=== PATIENT | male | born 1975 | race American Indian/Alaskan Native ===

== ENCOUNTER 2017-11-01 15:54 | Emergency (ER) | payer OTHER ==
[2017-11-01 16:27] VITALS: BP 152/93
[2017-11-01 21:40] LABS: Basophils # (Auto) 0.1 K/mm3 (0.0-0.1); Basophils % (Auto) 0.9 % (0.0-1.8); Eosinophils # (Auto) 0.2 K/mm3 (0.0-0.4); Eosinophils % (Auto) 2.4 % (0.0-4.3); Hematocrit 46.4 % (35.5-45.6); Hemoglobin 15.9 gm/dl (11.8-15.2); Lymphocytes # (Auto) 1.7 K/mm3 (1.2-5.4); Lymphocytes % (Auto) 23.3 % (13.4-35.0); Mean Corpuscular HGB Conc 34 % (32-34); Mean Corpuscular Hemoglobin 31 pg (28-32); Mean Corpuscular Volume 89 fl (84-94); Monocytes # (Auto) 0.6 K/mm3 (0.0-0.8); Monocytes % (Auto) 8.2 % (0.0-7.3); Platelet Count 223 K/mm3 (140-440); Red Cell Distribution Width 13.8 % (13.2-15.2)
[2017-11-01] MEDS ORDERED: TRIPLE ANTIBIOTIC TP ONE (22:05)
--- NOTE | 2017-11-01 22:07 | Emergency Department Report ---
- General Chief complaint: Wound/Laceration Stated complaint: OPEN SORE LT ARM Time Seen by Provider: 11/01/17 20:55 Source: patient Mode of arrival: Ambulatory Limitations: No Limitations - History of Present Illness Initial comments: This is a 42-year-old male nontoxic, well nourished in appearance, no acute signs of distress presents to the ED with c/o of left arm abrasion. Patient stated that he was discharged from [facility] yesterday and they used silk tape which caused him to have an abrasion. Patient also stated that he wants to make sure that "infection" is out of his body. Patient stated he was admitted with IV antibiotics and discharged with antibiotics but he does not know the name. Patient denies any fever, chills, nausea, vomiting, chest pain, shortness of breath, headache, stiff neck or numbness or tingling. Patient denies any abdominal pain. Patient denies any drug allergies besides adhesive tape. Past medical history includes [place], heart attack, hypothyroid and high cholesterol. MD complaint: other (abrasion) -: days(s) (1) Severity: mild Severity scale (0 -10): 3 Quality: aching Consistency: constant Improves with: none Worsens with: none Context: none Associated symptoms: denies other symptoms Treatments Prior to Arrival: none - Related Data Allergies Allergy/AdvReac Type Severity Reaction Status Date / Time adhesive tape Allergy Unknown Verified 11/01/17 16:28 Abscess Boil [facility] Chief Complaint: Wound/Laceration Stated Complaint: OPEN SORE LT ARM Time Seen by Provider: 11/01/17 20:55 Allergies/Adverse Reactions: Allergies Allergy/AdvReac Type Severity Reaction Status Date / Time adhesive tape Allergy Unknown Verified 11/01/17 16:28 ED Review of Systems ROS: Stated complaint: OPEN SORE LT ARM Other details as noted in HPI Constitutional: denies: chills, fever Eyes: denies: eye pain, eye discharge, vision change ENT: denies: ear pain, throat pain Respiratory: denies: cough, shortness of breath, wheezing Cardiovascular: denies: chest pain, palpitations Endocrine: no symptoms reported Gastrointestinal: denies: abdominal pain, nausea, diarrhea Genitourinary: denies: urgency, dysuria Musculoskeletal: denies: back pain, joint swelling, arthralgia Skin: denies: rash, lesions Neurological: denies: headache, weakness, paresthesias Psychiatric: denies: anxiety, depression Hematological/Lymphatic: denies: easy bleeding, easy bruising ED Past Medical Hx - Past Medical History Previous Medical History?: Yes Hx Hypertension: Yes Hx Heart Attack/AMI: Yes Hx Diabetes: No Additional medical history: hypothyroid, high cholesterol - Surgical History Past Surgical History?: Yes Additional Surgical History: CABG (triple), stent placement - Social History Smoking Status: Never Smoker Substance Use Type: None ED Physical Exam - General Limitations: No Limitations General appearance: alert, in no apparent distress - Head Head exam: Present: atraumatic, normocephalic - Eye Eye exam: Present: normal appearance Pupils: Present: normal accommodation - ENT ENT exam: Present: normal exam, mucous membranes moist - Neck Neck exam: Present: normal inspection, full ROM. Absent: tenderness, meningismus, lymphadenopathy - Respiratory Respiratory exam: Present: normal lung sounds bilaterally. Absent: respiratory distress, wheezes, rales, rhonchi, stridor, chest wall tenderness, accessory muscle use, decreased breath sounds, prolonged expiratory - Cardiovascular Cardiovascular Exam: Present: regular rate, normal rhythm, normal heart sounds. Absent: bradycardia, tachycardia, irregular rhythm, systolic murmur, diastolic murmur, rubs, gallop - GI/Abdominal GI/Abdominal exam: Present: soft, normal bowel sounds. Absent: distended, tenderness, guarding, rebound, rigid, diminished bowel sounds - Rectal Rectal exam: Present: deferred - Extremities Exam Extremities exam: Present: normal inspection, full ROM, tenderness, normal capillary refill, other (1 cm superficial abrasion to left antecubital area. No laceartion. No abscess or cellultits noted.). Absent: joint swelling - Back Exam Back exam: Present: normal inspection, full ROM - Neurological Exam Neurological exam: Present: alert, oriented X3, normal gait - Psychiatric Psychiatric exam: Present: normal affect, normal mood - Skin Skin exam: Present: warm, dry, intact, normal color. Absent: rash ED Course Vital Signs 11/01/17 16:22 Temperature 98.7 F Pulse Rate 72 Respiratory 18 Rate Blood Pressure 152/93 O2 Sat by Pulse 95 Oximetry - Reevaluation(s) Reevaluation #1: 11/01/17 22:13 Sinuses ED Medical Decision Making - Lab Data Result diagrams: 11/01/17 21:28 - Medical Decision Making This is a 42-year-old male that presents with an abrasion. Patient is stable and was examined by me. The abrasion has been applied triple antibiotic and a sterile dressing with Trish. Labs obtained. Vital signs are stable. Normal lactic acid. No white count. Patient was instructed to continue taking antibiotics as prescribed. Patient was referred to Follow-up with a primary care doctor in 3-5 days or if symptoms worsen and continue return to emergency room as soon as possible. At time of discharge, the patient does not seem toxic or ill in appearance. No acute signs of distress noted. Patient agrees to discharge treatment plan of care. No further questions noted by the patient. Critical care attestation.: If time is entered above; I have spent that time in minutes in the direct care of this critically ill patient, excluding procedure time. ED Disposition Clinical Impression: Abrasion Disposition: DC-01 TO HOME OR SELFCARE Is pt being admited?: No Does the pt Need Aspirin: No Condition: Stable Instructions: Abrasion (ED) Additional Instructions: Follow-up with a primary care doctor in 3-5 days or if symptoms worsen and continue return to emergency room as soon as possible. Continue taking antibiotics as prescribed to you during your previous hospital stay. Referrals: PRIMARY CARE, [Primary Care Provider] - 3-5 Days GEOVANNA LEE MD [Staff Physician] - 3-5 Days [facility] [Outside] - [facility] - [facility]-5 Days Forms: Work/School Release Form(ED)
[2017-11-01 22:09] LABS: BUN/Creatinine Ratio 11; Blood Urea Nitrogen 12 mg/dL (9-20); Calcium 9.4 mg/dL (8.4-10.2); Hemolysis Index 8
== END 2017-11-01 22:26 | disposition home or self-care (01) ==
LOC: ED 15:54
DX: S40.812A Abrasion of left upper arm, initial encounter (principal); I10 Essential (primary) hypertension; I25.2 Old myocardial infarction; E78.00 Pure hypercholesterolemia, unspecified; Z95.1 Presence of aortocoronary bypass graft; Z91.048 Other nonmedicinal substance allergy status; X58.XXXA Exposure to other specified factors, initial encounter; Y93.89 Activity, other specified; Y99.8 Other external cause status; Y92.89 Other specified places as the place of occurrence of the external cause
CPT/HCPCS: 36415; 80048; 82140; 85025; 99283; A6250

== ENCOUNTER 2018-10-30 21:10 | Inpatient (IN) | payer OTHER ==
[2018-10-30] MEDS ORDERED: ASPIRIN PO ONE (21:27)
--- NOTE | 2018-10-30 21:31 | Event Note ---
ED Screening Note Date of service: 10/30/18 Time: 21:26 ED Screening Note: This is a 43 y.o. M. that presents to the ER with chest pain and RLE swelling. Patient reports RLE swelling for 3 weeks. This initial assessment/diagnostic orders/clinical plan/treatment(s) is/are subject to change based on patients health status, clinical progression and re- assessment by fellow clinical providers in the ED. Further treatment and workup at subsequent clinical providers discretion. Patient/guardian urged not to elope from the ED as their condition may be serious if not clinically assessed and managed. Initial orders include: CXR, Labs, and EKG
--- NOTE | 2018-10-30 22:03 | XRay Report ---
CHEST 2 VIEWS INDICATION: Chest Pain. COMPARISON: 07/08/2012. FINDINGS: Support devices: None. Heart: Within normal limits. Suspicious previous median sternotomy. Lungs/Pleura: No acute air space or interstitial disease. No significant pleural effusion. IMPRESSION: No acute findings. Signer Name: Jin Mead MD Signed: 10/30/2018 9:58 PM Workstation Name: [email or web address]
[2018-10-30 22:45] LABS: Basophils # (Auto) 0.1 K/mm3 (0.0-0.1); Basophils % (Auto) 1.2 % (0.0-1.8); Eosinophils # (Auto) 0.2 K/mm3 (0.0-0.4); Eosinophils % (Auto) 3.3 % (0.0-4.3); Hematocrit 47.6 % (35.5-45.6); Hemoglobin 16.2 gm/dl (11.8-15.2); Lymphocytes # (Auto) 2.2 K/mm3 (1.2-5.4); Lymphocytes % (Auto) 38.1 % (13.4-35.0); Mean Corpuscular HGB Conc 34 % (32-34); Mean Corpuscular Volume 91 fl (84-94); Monocytes # (Auto) 0.6 K/mm3 (0.0-0.8); Monocytes % (Auto) 11.4 % (0.0-7.3); Platelet Count 167 K/mm3 (140-440); Red Blood Count 5.25 M/mm3 (3.65-5.03)
[2018-10-30 23:00] LABS: BUN/Creatinine Ratio 10; Blood Urea Nitrogen 12 mg/dL (9-20); Calcium 8.8 mg/dL (8.4-10.2); Hemolysis Index 14
--- NOTE | 2018-10-31 00:42 | Emergency Department Report ---
ED Chest Pain HPI - General Chief Complaint: Chest Pain Stated Complaint: CHEST PAIN/LEG SWELLING Time Seen by Provider: 10/30/18 21:26 Source: patient Mode of arrival: Ambulatory Limitations: No Limitations - History of Present Illness Initial Comments: 43-year-old male with a past history of obesity, hypertension, CAD with CABG 3 2009 and stent placement, elevated cholesterol, and hypothyroidism presents to the Hospital complains of right leg swelling 2 weeks and intermittent left- sided chest pain 3-4 days. Patient has swelling to his lower right leg the past 3 weeks. No trauma reported. Patient has a history of recurrent intermittent right leg swelling since receiving a CABG in 2009. This is the studies also associated with a cellulitis infection. Patient denies warmth, erythema, or fevers. He is concerned because the swelling has not improved in the last 3 weeks. He denies recent travel, history of PE/DVT, or no history of PAD. For the last 3-4 days and some left-sided achy chest pain. No vomiting reported. Patient does not take any antiplatelet agents including aspirin because he states he was told he did not need it. He is compliant with his meds. PMD [facility]. Rheumatologist: [facility] Severity scale (0 -10): 7 - Related Data Home Medications Medication Instructions Recorded Confirmed Last Taken Amlodipine Besylate [Norvasc] 5 mg PO DAILY 10/30/18 10/30/18 Unknown Atorvastatin Calcium [Lipitor] 80 mg PO DAILY 10/30/18 10/30/18 Unknown Carvedilol [Coreg] 12.5 mg PO BID 10/30/18 10/30/18 Unknown Levothyroxine [Synthroid] 50 mcg PO QAM 10/30/18 10/30/18 Unknown Allergies Allergy/AdvReac Type Severity Reaction Status Date / Time adhesive tape Allergy Unknown Verified 11/01/17 16:28 Heart Score - HEART Score History: Moderately suspicious EKG: Non-specific Age: < 45 Risk factors: > 3 risk factors or hx of atherosclerotic disease Troponin: < normal limit HEART Score: 4 ED Review of Systems ROS: Stated complaint: CHEST PAIN/LEG SWELLING Other details as noted in HPI Comment: All other systems reviewed and negative ED Past Medical Hx - Past Medical History Previous Medical History?: Yes Hx Hypertension: Yes Hx Heart Attack/AMI: Yes (2009) Hx Diabetes: No Additional medical history: hypothyroid, high cholesterol, Obesity - Surgical History Past Surgical History?: Yes Hx Coronary Stent: Yes Additional Surgical History: CABG (triple), stent placement - Social History Smoking Status: Never Smoker Substance Use Type: None - Medications Home Medications: Home Medications Medication Instructions Recorded Confirmed Last Taken Type Amlodipine Besylate [Norvasc] 5 mg PO DAILY 10/30/18 10/30/18 Unknown History Atorvastatin Calcium [Lipitor] 80 mg PO DAILY 10/30/18 10/30/18 Unknown History Carvedilol [Coreg] 12.5 mg PO BID 10/30/18 10/30/18 Unknown History Levothyroxine [Synthroid] 50 mcg PO QAM 10/30/18 10/30/18 Unknown History ED Physical Exam - General Limitations: No Limitations - Other Other exam information: General: no acute distress Head: Atraumatic, normocephalic Eyes: Normal appearance, pupils equal and reactive to light, extraocular movements intact ENT: normal oropharynx Neck: Normal appearance, no stridor, no meningismus, no midline tenderness. Cardiovascular: Regular rate and rhythm Chest: Clear to auscultation, no wheezes, rales, or crackles Abdomen: nondistended, soft, nontender, no rebound or guarding Extremity: Lower right leg swelling greatest anteriorly. Mildly tender to palpation. No warmth or erythema. 2+ DP pulse. Neuro: Alert and oriented 3, clear speech, no gross motor or sensory deficit Skin: No warmth, erythema ED Course Vital Signs 10/30/18 10/31/18 10/31/18 21:35 00:18 01:45 Temperature 97.7 F 98.1 F Pulse Rate 69 67 Respiratory 20 18 18 Rate Blood Pressure 153/90 150/90 [Right] O2 Sat by Pulse 96 98 Oximetry - Reevaluation(s) Reevaluation #1: 10/31/18 01:24 pt refused Po [place], he told the nurse he typically gets IV meds for his chest pain and leg pain ETHAN score - Ethan Score Age > 65: (0) No Aspirin use within the Past 7 Days: (0) No 3 or more CAD Risk Factors: (1) Yes 2 or more Angina events in past 24 hrs: (1) Yes Known CAD with more than 50% Stenosis: (0) No Elevated Cardiac Markers: (0) No ST Deviation Greater than 0.5mm: (0) No ETHAN Score: 2 ED Medical Decision Making - Lab Data Result diagrams: 10/30/18 22:14 10/30/18 22:14 Lab Results 10/30/18 10/30/18 10/31/18 Range/Units 22:14 22:14 00:46 WBC 5.7 (4.5-11.0) K/mm3 RBC 5.25 H (3.65-5.03) M/mm3 Hgb 16.2 H (11.8-15.2) gm/dl Hct 47.6 H (35.5-45.6) % MCV 91 (84-94) fl MCH 31 (28-32) pg MCHC 34 (32-34) % RDW 14.0 (13.2-15.2) % Plt Count 167 (140-440) K/mm3 Lymph % (Auto) 38.1 H (13.4-35.0) % [place] % (Auto) 11.4 H (0.0-7.3) % Eos % (Auto) 3.3 (0.0-4.3) % Baso % (Auto) 1.2 (0.0-1.8) % Lymph # 2.2 (1.2-5.4) K/mm3 [place] # 0.6 (0.0-0.8) K/mm3 Eos # 0.2 (0.0-0.4) K/mm3 Baso # 0.1 (0.0-0.1) K/mm3 Seg Neutrophils % 46.0 (40.0-70.0) % Seg Neutrophils # 2.6 (1.8-7.7) K/mm3 D-Dimer (0-234) ng/mlDDU Sodium 139 (137-145) mmol/L Potassium 4.1 (3.6-5.0) mmol/L Chloride 105.3 (98-107) mmol/L Carbon Dioxide 23 (22-30) mmol/L Anion Gap 15 mmol/L BUN 12 (9-20) mg/dL Creatinine 1.2 (0.8-1.5) mg/dL Estimated GFR > 60 ml/min BUN/Creatinine Ratio 10 % Glucose 86 (75-100) mg/dL Calcium 8.8 (8.4-10.2) mg/dL Troponin T < 0.010 < 0.010 (0.00-0.029) ng/mL 10/31/18 Range/Units 00:46 WBC (4.5-11.0) K/mm3 RBC (3.65-5.03) M/mm3 Hgb (11.8-15.2) gm/dl Hct (35.5-45.6) % MCV (84-94) fl MCH (28-32) pg MCHC (32-34) % RDW (13.2-15.2) % Plt Count (140-440) K/mm3 Lymph % (Auto) (13.4-35.0) % [place] % (Auto) (0.0-7.3) % Eos % (Auto) (0.0-4.3) % Baso % (Auto) (0.0-1.8) % Lymph # (1.2-5.4) K/mm3 [place] # (0.0-0.8) K/mm3 Eos # (0.0-0.4) K/mm3 Baso # (0.0-0.1) K/mm3 Seg Neutrophils % (40.0-70.0) % Seg Neutrophils # (1.8-7.7) K/mm3 D-Dimer 583.34 H (0-234) ng/mlDDU Sodium (137-145) mmol/L Potassium (3.6-5.0) mmol/L Chloride (98-107) mmol/L Carbon Dioxide (22-30) mmol/L Anion Gap mmol/L BUN (9-20) mg/dL Creatinine (0.8-1.5) mg/dL Estimated GFR ml/min BUN/Creatinine Ratio % Glucose (75-100) mg/dL Calcium (8.4-10.2) mg/dL Troponin T (0.00-0.029) ng/mL - EKG Data -: EKG Interpreted by Md EKG shows normal: sinus rhythm, axis (qrs 3), QRS complexes (qrsd 90), ST-T waves (lat t wave inv) Rate: normal - EKG Data When compared to previous EKG there are: previous EKG unavailable - Radiology Data Radiology results: report reviewed CTA chest with contrast INDICATION : cp, elevated ddimer, patient states he has had right leg swelling x3 weeks, shortness of breath, chest pain, and dizziness x 3 days. TECHNIQUE: Axial imaging performed through the chest, with contrast bolus timing set to maximize opacification of the pulmonary arteries. 3-plane MIP reformatted images were obtained. All CT scans at this location are performed using CT dose reduction for ALARA by means of automated exposure control. 100 mL of intravenous contrast administered. COMPARISON: None FINDINGS: Bolus: Contrast bolus timing is adequate. PTE: No filling defect is present to suggest PTE. Mediastinum: Old sternotomy change with normal heart size. No pathologic mediastinal adenopathy. Lungs: Lungs are clear. Upper abdomen: Limited imaging of the upper abdomen shows nothing acute. Bones: Degenerative changes in the spine with nothing acute. IMPRESSION: Negative for PTE. Clear lungs. CHEST 2 VIEWS INDICATION: Chest Pain. COMPARISON: 07/08/2012. FINDINGS: Support devices: None. Heart: Within normal limits. Suspicious previous median sternotomy. Lungs/Pleura: No acute air space or interstitial disease. No significant pleural effusion. IMPRESSION: No acute findings. - Medical Decision Making plan to admit to hospital for cp eval doppler not available at this time and can be done inpatient no clinical sx of cellulitis pt requesting IV pain meds for chest and leg pain (no acute distress noted) - Differential Diagnosis mi, pe, unstable angina, dvt, cellulitis, Critical Care Time: No Critical care attestation.: If time is entered above; I have spent that time in minutes in the direct care of this critically ill patient, excluding procedure time. ED Disposition Clinical Impression: Chest pain, Right leg swelling, Elevated d-dimer Disposition: OP ADMIT IP TO THIS HOSP Is pt being admited?: Yes Condition: Stable Time of Disposition: 02:43 (Dr Godwin)
[2018-10-31] MEDS ORDERED: NORCO 5/325 PO ONE (01:15)
[2018-10-31] MEDS ORDERED: ASPIRIN ONE (01:20)
[2018-10-31] MEDS ORDERED: ZOFRAN IV ONE (01:34)
[2018-10-31] MEDS ORDERED: MORPHINE IV ONE (01:34)
--- NOTE | 2018-10-31 02:33 | Cat Scan Report ---
CTA chest with contrast INDICATION : cp, elevated ddimer, patient states he has had right leg swelling x3 weeks, shortness of breath, chest pain, and dizziness x 3 days. TECHNIQUE: Axial imaging performed through the chest, with contrast bolus timing set to maximize opa cification of the pulmonary arteries. 3-plane MIP reformatted images were obtained. All CT scans at this location are performed using CT dose reduction for ALARA by means of automated exposure control. 100 mL of intravenous contrast administered. COMPARISON: None FINDINGS: Bolus: Contrast bolus timing is adequate. PTE: No filling defect is present to suggest PTE. Mediastinum: Old sternotomy change with normal heart size. No pathologic mediastinal adenopathy. Lungs: Lungs are clear. Upper abdomen: Limited imaging of the upper abdomen shows nothing acute. Bones: Degenerative changes in the spine with nothing acute. IMPRESSION: Negative for PTE. Clear lungs. Signer Name: Darien Carver MD Signed: 10/31/2018 2:28 AM Workstation Name: [id number]
[2018-10-31] MEDS ORDERED: NITROSTAT SL PRN (03:11)
[2018-10-31] MEDS ORDERED: SODIUM CHLORIDE FLUSH SYRINGE 10 ML IV PRN ×2 (03:11→03:16)
[2018-10-31] MEDS ORDERED: ULTRAM PO PRN (03:11)
[2018-10-31] MEDS ORDERED: TYLENOL PO PRN (03:16)
[2018-10-31] MEDS ORDERED: PROVENTIL IH PRN (03:16)
[2018-10-31] MEDS ORDERED: ZOFRAN IV PRN (03:16)
[2018-10-31] MEDS ORDERED: NACL 0.9% 1000 ML 1,000 ML IV SCH (04:00)
--- NOTE | 2018-10-31 04:09 | History and Physical Report ---
History of Present Illness Date of examination: 10/31/18 Date of admission: 10/31/2018 Chief complaint: Asked pain and right lower extremity edema History of present illness: 43-year-old -[place] male with history of coronary artery disease disease, CABG 3, hypertension, hypothyroidism who presents to [facility] ED with complaints of right lower extremity swelling and pain, and chest pain with dyspnea on exertion. States that he's been experiencing an right lower extremity edema and pain for the past 3 weeks. States that his lower extremity is tender to touch and warm. He admits that he occasionally experiences right lower extremity edema but it usually resolves within 2-3 days. He states that he is had cellulitis in the right lower extremity in the past however the pain is different this time. He is concerned about PE/DVT. He also complains of i ntermittent chest pain for the past 3-4 days. His chest pain is nonradiating left-sided substernal. He describes his pain as achy and rates it 6/10. She states that he is an established patient of [facility] located on [facility] in [place], [place]. He admits to being compliant with all medication. Denies: n/v/, diaphoresis, fever, headache, trauma to leg, recent travel or prolonged immobilization Past History Past Medical History: acute NV (2010), hypertension, hyperlipidemia, other Past Surgical History: CABG (x3 (2010), s/p stent) Social history: denies: smoking, alcohol abuse, prescription drug abuse Family history: no significant family history Medications and Allergies Allergies Allergy/AdvReac Type Severity Reaction Status Date / Time adhesive tape Allergy Unknown Verified 11/01/17 16:28 Home Medications Medication Instructions Recorded Confirmed Last Taken Type Amlodipine Besylate [Norvasc] 5 mg PO DAILY 10/30/18 10/30/18 Unknown History Atorvastatin Calcium [Lipitor] 80 mg PO DAILY 10/30/18 10/30/18 Unknown History Carvedilol [Coreg] 12.5 mg PO BID 10/30/18 10/30/18 Unknown History Levothyroxine [Synthroid] 50 mcg PO QAM 10/30/18 10/30/18 Unknown History Active Meds: Active Medications Acetaminophen (Tylenol) 650 mg PO Q4H PRN PRN Reason: Pain MILD(1-3)/Fever >100.5/HERCULES Albuterol (Proventil) 2.5 mg IH Q3HRT PRN PRN Reason: Shortness Of Breath Amlodipine Besylate (Norvasc) 5 mg PO DAILY [facility] Aspirin (Baby Aspirin) 81 mg PO QDAY [facility] Atorvastatin Calcium (Lipitor) 80 mg PO DAILY [facility] Carvedilol (Coreg) 12.5 mg PO BID [facility] Enoxaparin Sodium (Lovenox) 40 mg SUB-Q QDAY [facility] Sodium Chloride (Nacl 0.9% 1000 Ml) 1,000 mls @ 42 mls/hr IV DIRECT [facility] Levothyroxine Sodium (Synthroid) 50 mcg PO QAM@0600 [facility] Morphine Sulfate (Morphine) 2 mg IV Q4H PRN PRN Reason: Pain, Moderate (4-6) Nitroglycerin (Nitrostat) 0.4 mg SL Q5M PRN PRN Reason: Chest Pain Ondansetron HCl (Zofran) 4 mg IV Q6H PRN PRN Reason: Nausea And Vomiting Sodium Chloride (Sodium Chloride Flush Syringe 10 Ml) 10 ml IV BID [facility] Sodium Chloride (Sodium Chloride Flush Syringe 10 Ml) 10 ml IV PRN PRN PRN Reason: LINE FLUSH Tramadol HCl (Ultram) 50 mg PO Q4H PRN PRN Reason: Pain, Moderate (4-6) Review of Systems All systems: negative (reviewed and additional remarkable complaints except as noted) Cardiovascular: chest pain, shortness of breath, dyspnea on exertion, leg edema (rt lower leg edema with warmth and chronic edematous changes) Exam - Physical Exam Narrative exam: Physical exam General appearance: Present: No acute distress, developed, well-nourished, obese, pleasant -R[place]an male - EENT Eyes: Present: PERRL, EOM intact ENT: hearing intact, normal dentition - Neck Neck: Present: supple, normal ROM - Respiratory Respiratory effort: Non-labored Respiratory: CTA bilaterally - Cardiovascular Heart rate: 64 (bpm) Rhythm: regular Heart Sounds: Present: S1 & S2. Absent: rub, click - Extremities Extremities: no ischemia, pulses intact, abnormal (right lower extremity edema with warmth) - Peripheral Assessment Peripheral Pulses: within normal limits - Abdominal General gastrointestinal: Obese, soft, non-tender, normal bowel sounds - Integumentary Integumentary: Present: warm, dry - Musculoskeletal Musculoskeletal: Normal bowel extremities -Neurological Neurological: CN II-XII grossly intact - Psychiatric Psychiatric: cooperative - Constitutional Vitals: Temp Pulse Resp BP Pulse Ox 98.1 F 65 16 138/89 96 10/31/18 00:18 10/31/18 03:44 10/31/18 03:44 10/31/18 03:44 10/31/18 03:44 Results - Labs CBC & Chem 7: 10/30/18 22:14 10/30/18 22:14 Labs: Laboratory Last Values WBC 5.7 K/mm3 (4.5-11.0) 10/30/18 22:14 RBC 5.25 M/mm3 (3.65-5.03) H 10/30/18 22:14 Hgb 16.2 gm/dl (11.8-15.2) H 10/30/18 22:14 Hct 47.6 % (35.5-45.6) H 10/30/18 22:14 MCV 91 fl (84-94) 10/30/18 22:14 MCH 31 pg (28-32) 10/30/18 22:14 MCHC 34 % (32-34) 10/30/18 22:14 RDW 14.0 % (13.2-15.2) 10/30/18 22:14 Plt Count 167 K/mm3 (140-440) 10/30/18 22:14 Lymph % (Auto) 38.1 % (13.4-35.0) H 10/30/18 22:14 [place] % (Auto) 11.4 % (0.0-7.3) H 10/30/18 22:14 Eos % (Auto) 3.3 % (0.0-4.3) 10/30/18 22:14 Baso % (Auto) 1.2 % (0.0-1.8) 10/30/18 22:14 Lymph # 2.2 K/mm3 (1.2-5.4) 10/30/18 22:14 [place] # 0.6 K/mm3 (0.0-0.8) 10/30/18 22:14 Eos # 0.2 K/mm3 (0.0-0.4) 10/30/18 22:14 Baso # 0.1 K/mm3 (0.0-0.1) 10/30/18 22:14 Seg Neutrophils % 46.0 % (40.0-70.0) 10/30/18 22:14 Seg Neutrophils # 2.6 K/mm3 (1.8-7.7) 10/30/18 22:14 583.34 ng/mlDDU (0-234) H 10/31/18 00:46 Sodium 139 mmol/L (137-145) 10/30/18 22:14 Potassium 4.1 mmol/L (3.6-5.0) 10/30/18 22:14 Chloride 105.3 mmol/L (98-107) 10/30/18 22:14 Carbon Dioxide 23 mmol/L (22-30) 10/30/18 22:14 15 mmol/L 10/30/18 22:14 BUN 12 mg/dL (9-20) 10/30/18 22:14 1.2 mg/dL (0.8-1.5) 10/30/18 22:14 Estimated GFR > 60 ml/min 10/30/18 22:14 10 % 10/30/18 22:14 Glucose 86 mg/dL (75-100) 10/30/18 22:14 Calcium 8.8 mg/dL (8.4-10.2) 10/30/18 22:14 < 0.010 ng/mL (0.00-0.029) 10/31/18 00:46 - Imaging and Cardiology EKG: image reviewed (SR 64 bpm, ) Chest x-ray: report reviewed ( No acute air space or interstitial disease. No significant pleural effusion. ), image reviewed Imaging and Cardiology: CTA Chest FINDINGS: Bolus: Contrast bolus timing is adequate. PTE: No filling defect is present to suggest PTE. Mediastinum: Old sternotomy change with normal heart size. No pathologic mediastinal adenopathy. Lungs: Lungs are clear. Upper abdomen: Limited imaging of the upper abdomen shows nothing acute. Bones: Degenerative changes in the spine with nothing acute. IMPRESSION: Negative for PTE. Clear lungs. Assessment and Plan Assessment and plan: 43-year-old -[place] male with history of coronary artery disease disease, CABG 3, hypertension, hypothyroidism who presents to [facility] ED with complaints of right lower extremity swelling and pain for 3 weeks and chest pain with dyspnea on exertion for the past 3-4 days. Acute CP ACS R/O -Continue supportive care -Continuous telemetry monitoring -Echocardiogram pending -Lexiscan pending -Troponin negative 2, repeat troponin pending -Cardiology consulted RLE Edema R/o PE/DVT -D-dimer elevated at 583.34 -CT angiogram chest negative for PE -Right lower extremity edema with warmth and pain -Lower extremity Doppler pending HTN -Monitor BP -Resume home antihypertensive meds to optimize BP Hypothyroidism -Continue Synthroid -TSH pending Hx CABG (2009) -x3 CAD -S/P stent (2009) -Continue ASA and statin Obesity -BMI 47.6 -May Benefit from lifestyle and diet modifications and patient weight management program DVT PPX -on Lovenox Advance Directives: No VTE prophylaxis?: Chemical Plan of care discussed with patient/family: Yes
[2018-10-31 04:18] LABS: Chol/HDL Ratio 3.64 %
[2018-10-31] MEDS: MORPHINE IV PRN ×3 (05:16→13:46)
--- NOTE | 2018-10-31 08:31 | Progress Note ---
Assessment and Plan Assessment and plan: Patient is a 43-year-old -Danish male with history of coronary artery disease disease, CABG 3, hypertension, hypothyroidism who presents to [facility] ED with complaints of right lower extremity swelling and pain for 3 weeks and chest pain with dyspnea on exertion for the past 3-4 days. * CTA chest negative for PE and clear lungs RLE Edema, nonpurulent cellulitis Ruled out PE/DVT, most likely cellullitis, start IV unasyn -D-dimer elevated at 583.34 -CT angiogram chest negative for PE -Right lower extremity edema with warmth and pain -Lower extremity Doppler negative Acute CP, stress test negative, most likely costochondritis -Continue supportive care -Continuous telemetry monitoring -Echocardiogram reviewed -Lexiscan negative -Troponin negative 2, repeat troponin pending -Cardiology consulted HTN -Monitor BP -Resume home antihypertensive meds to optimize BP Hypothyroidism -Continue Synthroid -TSH reviewd Hx CABG (2009) -x3 -consulted cardiology CAD -S/P stent (2009) -Continue ASA and statin Obesity -BMI 47.6 -May Benefit from lifestyle and diet modifications and patient weight management program DVT PPX -on Lovenox History Interval history: Patient was seen and examined. Follow-up on current diagnosis chest pains and right leg pains. No overnight events reported to me. Patient denies any chest pain, shortness breath, nausea/vomiting or severe headaches. Imaging, nursing note, chart, labs and old chart reviewed. Discussed with patient. He is specifically asking for Dilaudid for chest and right leg pains. Hospitalist Physical - Physical exam Narrative exam: Gen: WDWN, NAD, Awake, Alert, Orientated HEENT: NCAT, EOMI, PERRL, OP Clear Neck: supple, no adenopathy, no thyromegaly, no JVD CVS/Heart: RRR, normal S1S2, pulses present bilaterally Chest/Lungs: CTA B, Symmetrical chest expansion, good air entry bilaterally GI/Abdomen: soft, NTND, good bowel sounds, no guarding or rebound /Bladder: no suprapubic tenderness, no CVA or paraspinal tenderness Extermity/Skin: right lower anterior leg below negron soft tissue swelling, slight red, erthymatous and warm but not tender, MSK: FROM x 4 Neuro: CN 2-12 grossly intact, no new focal deficits Psych: calm - Constitutional Vitals: Temp Pulse Resp BP Pulse Ox 97.7 F 63 16 136/89 93 10/31/18 06:34 10/31/18 06:34 10/31/18 06:34 10/31/18 06:34 10/31/18 06:34 Results - Labs CBC & Chem 7: 10/30/18 22:14 10/30/18 22:14 Labs: Laboratory Last Values WBC 5.7 K/mm3 (4.5-11.0) 10/30/18 22:14 RBC 5.25 M/mm3 (3.65-5.03) H 10/30/18 22:14 Hgb 16.2 gm/dl (11.8-15.2) H 10/30/18 22:14 Hct 47.6 % (35.5-45.6) H 10/30/18 22:14 MCV 91 fl (84-94) 10/30/18 22:14 MCH 31 pg (28-32) 10/30/18 22:14 MCHC 34 % (32-34) 10/30/18 22:14 RDW 14.0 % (13.2-15.2) 10/30/18 22:14 Plt Count 167 K/mm3 (140-440) 10/30/18 22:14 Lymph % (Auto) 38.1 % (13.4-35.0) H 10/30/18 22:14 [place] % (Auto) 11.4 % (0.0-7.3) H 10/30/18 22:14 Eos % (Auto) 3.3 % (0.0-4.3) 10/30/18 22:14 Baso % (Auto) 1.2 % (0.0-1.8) 10/30/18 22:14 Lymph # 2.2 K/mm3 (1.2-5.4) 10/30/18 22:14 [place] # 0.6 K/mm3 (0.0-0.8) 10/30/18 22:14 Eos # 0.2 K/mm3 (0.0-0.4) 10/30/18 22:14 Baso # 0.1 K/mm3 (0.0-0.1) 10/30/18 22:14 Seg Neutrophils % 46.0 % (40.0-70.0) 10/30/18 22:14 Seg Neutrophils # 2.6 K/mm3 (1.8-7.7) 10/30/18 22:14 583.34 ng/mlDDU (0-234) H 10/31/18 00:46 Sodium 139 mmol/L (137-145) 10/30/18 22:14 Potassium 4.1 mmol/L (3.6-5.0) 10/30/18 22:14 Chloride 105.3 mmol/L (98-107) 10/30/18 22:14 Carbon Dioxide 23 mmol/L (22-30) 10/30/18 22:14 15 mmol/L 10/30/18 22:14 BUN 12 mg/dL (9-20) 10/30/18 22:14 1.2 mg/dL (0.8-1.5) 10/30/18 22:14 Estimated GFR > 60 ml/min 10/30/18 22:14 10 % 10/30/18 22:14 Glucose 86 mg/dL (75-100) 10/30/18 22:14 Calcium 8.8 mg/dL (8.4-10.2) 10/30/18 22:14 < 0.010 ng/mL (0.00-0.029) 10/31/18 03:19 Triglycerides 94 mg/dL (2-149) 10/31/18 03:41 Cholesterol 182 mg/dL (50-199) 10/31/18 03:41 131 mg/dL (50-130) H 10/31/18 03:41 50 mg/dL (40-59) 10/31/18 03:41 3.64 % 10/31/18 03:41 TSH 11.290 mlU/mL (0.270-4.200) H 10/31/18 03:41 Free T4 0.95 ng/dL (0.76-1.46) 10/31/18 06:36 5.7 ug/dL (4.0-12.0) 10/31/18 06:36 Active Medications - Current Medications Current Medications: Generic Name Dose Route Start Last Admin Trade Name Freq PRN Reason Stop Dose Admin Acetaminophen 650 mg 10/31/18 03:16 Tylenol PO Q4H PRN Pain MILD(1-3)/Fever >100.5/HERCULES Albuterol 2.5 mg 10/31/18 03:16 Proventil IH Q3HRT PRN Shortness Of Breath Amlodipine Besylate 5 mg 10/31/18 10:00 Norvasc PO DAILY [facility] Aspirin 81 mg 11/01/18 10:00 Baby Aspirin PO QDAY [facility] Atorvastatin Calcium 80 mg 10/31/18 10:00 Lipitor PO DAILY [facility] Carvedilol 12.5 mg 10/31/18 10:00 Coreg PO BID [facility] Enoxaparin Sodium 40 mg 10/31/18 10:00 Lovenox SUB-Q QDAY [facility] Levothyroxine Sodium 50 mcg 10/31/18 06:00 Synthroid PO QAM@0600 [facility] Morphine Sulfate 2 mg 10/31/18 03:16 10/31/18 05:16 Morphine IV 2 mg Q4H PRN Administration Pain, Moderate (4-6) Nitroglycerin 0.4 mg 10/31/18 03:11 Nitrostat SL Q5M PRN Chest Pain Ondansetron HCl 4 mg 10/31/18 03:16 Zofran IV Q6H PRN Nausea And Vomiting Sodium Chloride 10 ml 10/31/18 10:00 Sodium Chloride Flush Syringe 10 Ml IV BID [facility] Sodium Chloride 10 ml 10/31/18 03:16 Sodium Chloride Flush Syringe 10 Ml IV PRN PRN LINE FLUSH Tramadol HCl 50 mg 10/31/18 03:11 Ultram PO Q4H PRN Pain, Moderate (4-6)
[2018-10-31] MEDS ORDERED: LEXISCAN IV ONE ×2 (09:44)
--- NOTE | 2018-10-31 13:32 | Vascular Lab Report ---
DUPLEX DOPPLER LOWER EXTREMITY VEINS, RIGHT INDICATION: RLE pain and swelling, elevated d-dimer. TECHNIQUE: Duplex doppler imaging was performed through the veins of the right lower extremity using venous compression and other maneuvers. COMPARISON: No relevant prior imaging study available. FINDINGS: Right Common femoral vein: Negative. Right Superficial femoral vein: Negative. Right Popliteal vein: Negative. Right Calf veins: Negative. Additional findings: None.. IMPRESSION: No sonographic evidence for DVT in the right lower extremity. Signer Name: Chandan Davila Jr, MD Signed: 10/31/2018 1:28 PM Workstation Name: [id number]
--- NOTE | 2018-10-31 13:37 | Consultation ---
History of Present Illness Consult date: 10/31/18 Requesting physician: DARREL CARCAMO Consult reason: chest pain History of present illness: Mr. Avila is a 43 y/o male with a history of severe [place] CAD s/p CABG x3 in 2009, an acute RI, hypertension, VIDHI, hypothyroidism, morbid obesity and venous insufficiency who presented to [facility] with right lower extremity swelling x3-4 weeks and chest pain x3-4 days. He describes the pain as substernal pressure that did not radiate. An EKG was negative for STEMI and troponins were negative x2. Ultrasound of RLL negative for DVT. An echo on 10/31/18 found an EF of 45 to 50 percent, mild concentric LVH and grade 1 left ventricular diastolic dysfunction. A stress test on 10/31/18 was negative for ischemia and infarct with an EF of 48 percent. Past History Past Medical History: acute RI (2009), hypertension, hyperlipidemia, other (hypothyroidism, VIDHI, venous insufficiency) Past Surgical History: CABG (x3 (2009), s/p stent) Social history: denies: smoking, alcohol abuse, prescription drug abuse Family history: no significant family history Medications and Allergies Allergies Allergy/AdvReac Type Severity Reaction Status Date / Time adhesive tape Allergy Unknown Verified 11/01/17 16:28 Home Medications Medication Instructions Recorded Confirmed Last Taken Type Amlodipine Besylate [Norvasc] 5 mg PO DAILY 10/30/18 10/30/18 Unknown History Atorvastatin Calcium [Lipitor] 80 mg PO DAILY 10/30/18 10/30/18 Unknown History Carvedilol [Coreg] 12.5 mg PO BID 10/30/18 10/30/18 Unknown History Levothyroxine [Synthroid] 50 mcg PO QAM 10/30/18 10/30/18 Unknown History Active Meds: Active Medications Acetaminophen (Tylenol) 650 mg PO Q4H PRN PRN Reason: Pain MILD(1-3)/Fever >100.5/HERCULES Albuterol (Proventil) 2.5 mg IH Q3HRT PRN PRN Reason: Shortness Of Breath Amlodipine Besylate (Norvasc) 5 mg PO DAILY [facility] Aspirin (Baby Aspirin) 81 mg PO QDAY [facility] Atorvastatin Calcium (Lipitor) 80 mg PO DAILY [facility] Carvedilol (Coreg) 12.5 mg PO BID [facility] Enoxaparin Sodium (Lovenox) 40 mg SUB-Q QDAY [facility] Levothyroxine Sodium (Synthroid) 50 mcg PO QAM@0600 [facility] Morphine Sulfate (Morphine) 2 mg IV Q4H PRN PRN Reason: Pain, Moderate (4-6) Last Admin: 10/31/18 09:13 Dose: 2 mg Documented by: Nitroglycerin (Nitrostat) 0.4 mg SL Q5M PRN PRN Reason: Chest Pain Ondansetron HCl (Zofran) 4 mg IV Q6H PRN PRN Reason: Nausea And Vomiting Sodium Chloride (Sodium Chloride Flush Syringe 10 Ml) 10 ml IV BID [facility] Sodium Chloride (Sodium Chloride Flush Syringe 10 Ml) 10 ml IV PRN PRN PRN Reason: LINE FLUSH Tramadol HCl (Ultram) 50 mg PO Q4H PRN PRN Reason: Pain, Moderate (4-6) Review of Systems All systems: negative Cardiovascular: leg edema (RLL - is localized in post-tibial area, nonpitting) Physical Examination Vital Signs Temp Pulse Resp BP Pulse Ox 97.7 F 69 20 153/90 96 10/30/18 21:35 10/30/18 21:35 10/30/18 21:35 10/30/18 21:35 10/30/18 21:35 General appearance: no acute distress HEENT: Positive: PERRL Neck: Positive: neck supple Cardiac: Positive: Reg Rate and Rhythm Lungs: Positive: Normal Exam Neuro: Positive: Grossly Intact Abdomen: Positive: Unremarkable Male genitourinary: Positive: deferred Skin: Positive: Clear Extremities: Present: edema (RLL - localized to posttibial area, nonpitting) Results 10/30/18 22:14 10/30/18 22:14 Lipids 10/31/18 Range/Units 03:41 Triglycerides 94 (2-149) mg/dL Cholesterol 182 (50-199) mg/dL HDL Cholesterol 50 (40-59) mg/dL Cholesterol/HDL Ratio 3.64 % CBC 10/30/18 Range/Units 22:14 WBC 5.7 (4.5-11.0) K/mm3 RBC 5.25 H (3.65-5.03) M/mm3 Hgb 16.2 H (11.8-15.2) gm/dl Hct 47.6 H (35.5-45.6) % Plt Count 167 (140-440) K/mm3 Lymph # 2.2 (1.2-5.4) K/mm3 [place] # 0.6 (0.0-0.8) K/mm3 Eos # 0.2 (0.0-0.4) K/mm3 Baso # 0.1 (0.0-0.1) K/mm3 Comprehensive Metabolic Panel 10/30/18 Range/Units 22:14 Sodium 139 (137-145) mmol/L Potassium 4.1 (3.6-5.0) mmol/L Chloride 105.3 (98-107) mmol/L Carbon Dioxide 23 (22-30) mmol/L BUN 12 (9-20) mg/dL Creatinine 1.2 (0.8-1.5) mg/dL Glucose 86 (75-100) mg/dL Calcium 8.8 (8.4-10.2) mg/dL - Imaging and Cardiology Stress echo: report reviewed (10/31/18: negative for ischemia and infarct) Echo: report reviewed (10/31/18: EF 45-50%, mild LVH, grade 1 left diastolic dysfunction) EKG: report reviewed - EKG Interpretation EKG: sinus rhythm EKG interpretations - EKG Sinus rhythms and dysrhythmias: sinus rhythm Assessment and Plan Mr. Avila is a 43 y/o male who presented to [facility] with chest pain and RLL edema. Troponins and EKG negative. Stress test also negative for ischemia and infarct. Recommend anti-ischemic therapy; however, patient refuses Imdur d/t past ineffectiveness - will start Ranexa. Further recommendations regarding RLL edema are pending. The patient has been seen in conjunction with Dr. Holden, who agrees with assessment and plan.
[2018-10-31] MEDS: COREG PO SCH ×2 (13:45→21:09)
[2018-10-31] MEDS: NORVASC PO SCH (13:45)
[2018-10-31] MEDS: LOVENOX SUB-Q SCH (13:46)
[2018-10-31] MEDS: SODIUM CHLORIDE FLUSH SYRINGE 10 ML IV SCH ×2 (13:46→21:09)
[2018-10-31] MEDS: RANEXA ER PO SCH ×2 (15:10→21:09)
[2018-10-31] MEDS: DILAUDID IV PRN ×2 (15:59→19:59)
[2018-10-31] MEDS: UNASYN/NS 3 GM/100 ML 3 GM/100 ML BAG IV SCH (18:35)
[2018-10-31] MEDS: SYNTHROID PO SCH (19:53)
[2018-11-01] MEDS: UNASYN/NS 3 GM/100 ML 3 GM/100 ML BAG IV SCH ×3 (00:01→12:16)
[2018-11-01] MEDS: DILAUDID IV PRN ×6 (00:01→21:18)
--- NOTE | 2018-11-01 03:05 | Treadmill Report ---
NUCLEAR CARDIAC IMAGING REPORT INDICATION FOR PROCEDURE: Chest pain. Informed consent was obtained. Vasodilator stress was achieved with the intravenous administration of 0.4 mg of Lexiscan per protocol. Nuclear cardiac imaging was performed per Intensive Care Unit protocol with the intravenous administration of technetium-99m Myoview. Gated SPECT imaging demonstrates a left ventricular ejection fraction of 48%. Post-stress left ventricular systolic thickening appears to be grossly normal. Myocardial perfusion imaging demonstrates no significant cavity change between stress and rest. There is a small moderate persistent inferior wall perfusion defect which in the absence of an accompanying wall motion abnormality may be artifactual in origin. Nuclear cardiac imaging demonstrates mild post-stress left ventricular systolic dysfunction. There is no definite evidence for a significant degree of myocardial ischemia. Although prior inferior wall myocardial necrosis cannot be definitely excluded, the imaging characteristics of the perfusion defect suggests that it may be artifactual in origin. JOB# [id number] LONNIE/HEIDE
[2018-11-01 05:02] LABS: Basophils % (Auto) 0.7 % (0.0-1.8); Eosinophils # (Auto) 0.2 K/mm3 (0.0-0.4); Eosinophils % (Auto) 3.1 % (0.0-4.3); Hematocrit 44.6 % (35.5-45.6); Hemoglobin 15.4 gm/dl (11.8-15.2); Lymphocytes # (Auto) 1.7 K/mm3 (1.2-5.4); Lymphocytes % (Auto) 27.1 % (13.4-35.0); Mean Corpuscular HGB Conc 34 % (32-34); Mean Corpuscular Volume 90 fl (84-94); Monocytes # (Auto) 0.5 K/mm3 (0.0-0.8); Monocytes % (Auto) 8.9 % (0.0-7.3); Platelet Count 157 K/mm3 (140-440); Red Blood Count 4.95 M/mm3 (3.65-5.03); Red Cell Distribution Width 13.4 % (13.2-15.2)
[2018-11-01 05:17] LABS: BUN/Creatinine Ratio 11; Blood Urea Nitrogen 12 mg/dL (9-20); Calcium 8.4 mg/dL (8.4-10.2); Hemolysis Index 9
[2018-11-01] MEDS: SYNTHROID PO SCH (05:22)
--- NOTE | 2018-11-01 08:55 | Progress Note ---
Assessment and Plan cardiac status stable may discharge from the cardiac standpoint f/u in our office ([facility] 10 days-2wks) Subjective Date of service: 11/01/18 Interval history: pt denies cp or sob no acute distress stress test findings discussed vss sinus rhythm Objective Vital Signs Temp Pulse Pulse Resp Resp BP Pulse Ox 11/01/18 07:57 97.8 F 69 20 114/69 93 11/01/18 04:43 18 11/01/18 04:13 18 11/01/18 03:47 97.7 F 11/01/18 03:45 73 18 135/85 92 11/01/18 00:31 18 11/01/18 00:01 18 10/31/18 23:20 98.4 F 10/31/18 23:19 71 18 138/68 91 10/31/18 21:09 72 123/75 10/31/18 20:29 18 10/31/18 20:13 72 18 98 10/31/18 20:06 18 10/31/18 20:05 18 10/31/18 20:04 18 10/31/18 20:00 18 10/31/18 19:59 18 10/31/18 19:49 97.5 F L 10/31/18 19:46 69 18 123/75 92 10/31/18 19:33 79 10/31/18 16:27 98.3 F 62 18 144/79 93 10/31/18 10:37 137/85 10/31/18 10:36 73 139/81 10/31/18 10:35 72 131/79 10/31/18 10:34 73 141/82 10/31/18 10:33 77 141/84 10/31/18 10:32 78 138/88 10/31/18 10:31 84 136/95 10/31/18 10:30 141/84 10/31/18 10:28 138/88 10/31/18 10:25 68 139/89 10/31/18 10:24 136/95 10/31/18 10:22 139/89 10/31/18 10:00 64 - Physical Examination Cardiac: Positive: Regular Rhythm Lungs: Positive: clear to auscultation Abdomen: Positive: Unremarkable, Soft Skin: Positive: Clear Extremities: Present: edema (RLL - localized to posttibial area, nonpitting) - Labs and Meds CBC 11/01/18 Range/Units 03:56 WBC 6.1 (4.5-11.0) K/mm3 RBC 4.95 (3.65-5.03) M/mm3 Hgb 15.4 H (11.8-15.2) gm/dl Hct 44.6 (35.5-45.6) % Plt Count 157 (140-440) K/mm3 Lymph # 1.7 (1.2-5.4) K/mm3 [place] # 0.5 (0.0-0.8) K/mm3 Eos # 0.2 (0.0-0.4) K/mm3 Baso # 0.0 (0.0-0.1) K/mm3 Comprehensive Metabolic Panel 11/01/18 Range/Units 04:10 Sodium 139 (137-145) mmol/L Potassium 4.2 (3.6-5.0) mmol/L Chloride 103.2 (98-107) mmol/L Carbon Dioxide 27 (22-30) mmol/L BUN 12 (9-20) mg/dL Creatinine 1.1 (0.8-1.5) mg/dL Glucose 92 (75-100) mg/dL Calcium 8.4 (8.4-10.2) mg/dL - Imaging and Cardiology EKG: report reviewed Stress echo: report reviewed (10/31/18: negative for ischemia and infarct) Echo: report reviewed (10/31/18: EF 45-50%, mild LVH, grade 1 left diastolic dysfunction) - EKG Sinus rhythms and dysrhythmias: sinus rhythm
[2018-11-01] MEDS: BABY ASPIRIN PO SCH (09:02)
[2018-11-01] MEDS: NORVASC PO SCH (09:02)
[2018-11-01] MEDS: COREG PO SCH ×2 (09:02→21:18)
[2018-11-01] MEDS: RANEXA ER PO SCH ×2 (09:02→21:18)
[2018-11-01] MEDS: LOVENOX SUB-Q SCH ×2 (09:03→09:08)
[2018-11-01] MEDS: SODIUM CHLORIDE FLUSH SYRINGE 10 ML IV SCH ×2 (09:05→21:18)
--- NOTE | 2018-11-01 10:06 | Consultation ---
History of Present Illness - Reason for Consult Consult date: 11/01/18 right lower extremity swelling and cellulitis - History of Present Illness Patient with a history of recurrent right lower extremity swelling and cellulitis from the mid calf distally. Per patient, he has no history of DVT. His previously undergone a bypass with harvest of his right greater saphenous vein distally. Ultrasound demonstrated no evidence of DVT. Past History Past Medical History: acute [place] (2009), hypertension, hyperlipidemia, other (hypothyroidism, VIDHI, venous insufficiency) Past Surgical History: CABG (x3 (2010), s/p stent) Social history: denies: smoking, alcohol abuse, prescription drug abuse Family history: no significant family history Medications and Allergies Allergies Allergy/AdvReac Type Severity Reaction Status Date / Time adhesive tape Allergy Unknown Verified 11/01/17 16:28 Home Medications Medication Instructions Recorded Confirmed Last Taken Type Amlodipine Besylate [Norvasc] 5 mg PO DAILY 10/30/18 10/30/18 Unknown History Atorvastatin Calcium [Lipitor] 80 mg PO DAILY 10/30/18 10/30/18 Unknown History Carvedilol [Coreg] 12.5 mg PO BID 10/30/18 10/30/18 Unknown History Levothyroxine [Synthroid] 50 mcg PO QAM 10/30/18 10/30/18 Unknown History Active Meds: Active Medications Acetaminophen (Tylenol) 650 mg PO Q4H PRN PRN Reason: Pain MILD(1-3)/Fever >100.5/HERCULES Albuterol (Proventil) 2.5 mg IH Q3HRT PRN PRN Reason: Shortness Of Breath Amlodipine Besylate (Norvasc) 5 mg PO DAILY [facility] Last Admin: 11/01/18 09:02 Dose: 5 mg Documented by: Aspirin (Baby Aspirin) 81 mg PO QDAY [facility] Last Admin: 11/01/18 09:02 Dose: 81 mg Documented by: Atorvastatin Calcium (Lipitor) 80 mg PO DAILY [facility] Last Admin: 11/01/18 09:02 Dose: 80 mg Documented by: Carvedilol (Coreg) 12.5 mg PO BID [facility] Last Admin: 11/01/18 09:02 Dose: 12.5 mg Documented by: Enoxaparin Sodium (Lovenox) 40 mg SUB-Q QDAY [facility] Last Admin: 11/01/18 09:08 Dose: Not Given Documented by: Hydromorphone HCl (Dilaudid) 1 mg IV Q4H PRN PRN Reason: Pain , Severe (7-10) Last Admin: 11/01/18 08:12 Dose: 1 mg Documented by: Ampicillin Sodium/Sulbactam Sodium (Unasyn/Ns 3 Gm/100 Ml) 3 gm in 100 mls @ 200 mls/hr IV Q6HR [facility]; Protocol Last Admin: 11/01/18 05:22 Dose: 200 mls/hr Documented by: Levothyroxine Sodium (Synthroid) 50 mcg PO QAM@0600 [facility] Last Admin: 11/01/18 05:22 Dose: 50 mcg Documented by: Nitroglycerin (Nitrostat) 0.4 mg SL Q5M PRN PRN Reason: Chest Pain Ondansetron HCl (Zofran) 4 mg IV Q6H PRN PRN Reason: Nausea And Vomiting Ranolazine (Ranexa Er) 500 mg PO BID [facility] Last Admin: 11/01/18 09:02 Dose: 500 mg Documented by: Sodium Chloride (Sodium Chloride Flush Syringe 10 Ml) 10 ml IV BID [facility] Last Admin: 11/01/18 09:05 Dose: 10 ml Documented by: Sodium Chloride (Sodium Chloride Flush Syringe 10 Ml) 10 ml IV PRN PRN PRN Reason: LINE FLUSH Review of Systems All systems: negative Exam - Constitutional Vitals: Temp Pulse Resp BP Pulse Ox 97.8 F 69 20 114/69 93 11/01/18 07:57 11/01/18 07:57 11/01/18 07:57 11/01/18 07:57 11/01/18 07:57 General appearance: Present: no acute distress - EENT Eyes: Present: PERRL ENT: hearing intact - Neck Neck: Present: supple, normal ROM - Respiratory Respiratory effort: normal - Extremities Extremities: pulses intact (pedal) Extremity abnormal: edema Peripheral Pulses: within normal limits - Abdominal General gastrointestinal: Present: deferred Male genitourinary: Present: deferred - Rectal Rectal Exam: deferred - Psychiatric Psychiatric: appropriate mood/affect, cooperative Results - Labs CBC & Chem 7: 11/01/18 03:56 11/01/18 04:10 Labs: Abnormal lab results 11/01/18 Range/Units 03:56 Hgb 15.4 H (11.8-15.2) gm/dl [place] % (Auto) 8.9 H (0.0-7.3) % - Imaging and Cardiology Venous US: report reviewed, image reviewed Assessment and Plan Patient with a history of asymmetric right lower extremity recurrent swelling and cellulitis. This is required multiple hospitalizations in the past. The patient will need a CTA of the abdomen and pelvis with runoff to the feet and both arterial and venous stasis to determine if there is stenosis preventing his venous drainage from the right lower extremity.
--- NOTE | 2018-11-01 12:57 | Consultation ---
History of Present Illness - Reason for Consult Consult date: 11/01/18 RLE cellulitis Requesting physician: LES OQUENDO - History of Present Illness The patient is a 43-year-old male with coronary artery disease status post CABG, hypertension, hypothyroidism, morbid obesity who presented to the emergency room on 10/30/2018 with complaints of chest pain. He has been undergoing a cardiac workup. He was also complaining of right lower extremity pain. He has a h istory of recurrent right lower extremity cellulitis ever since he got his bypass surgery. He otherwise denies any fevers or chills. Review of Systems: General: no fevers,chills or rigors HEENT: no new visual disturbance Respiratory: No cough, sputum, hemoptysis or shortness of breath Cardiovascular: No active chest pain, syncope Gastrointestinal: No nausea, vomiting or diarrhea Genitourinary: No dysuria or hematuria Musculoskeletal: No new or worsening neck pain or back pain Neurologic: No headaches, seizures Hematologic: No easy bruising or bleeding Endocrine: No night sweats or acute weight loss Skin: negative for rash, jaundice Psychiatric: No suicidal or homicidal ideation Past History Past Medical History: acute [place] (2009), hypertension, hyperlipidemia, other (hypothyroidism, VIDHI, venous insufficiency) Past Surgical History: CABG (x3 (2010), s/p stent) Social history: denies: smoking, alcohol abuse, prescription drug abuse Family history: no significant family history Medications and Allergies Allergies Allergy/AdvReac Type Severity Reaction Status Date / Time adhesive tape Allergy Unknown Verified 11/01/17 16:28 Home Medications Medication Instructions Recorded Confirmed Last Taken Type Amlodipine Besylate [Norvasc] 5 mg PO DAILY 10/30/18 10/30/18 Unknown History Atorvastatin Calcium [Lipitor] 80 mg PO DAILY 10/30/18 10/30/18 Unknown History Carvedilol [Coreg] 12.5 mg PO BID 10/30/18 10/30/18 Unknown History Levothyroxine [Synthroid] 50 mcg PO QAM 10/30/18 10/30/18 Unknown History Active Meds: Active Medications Acetaminophen (Tylenol) 650 mg PO Q4H PRN PRN Reason: Pain MILD(1-3)/Fever >100.5/HERCULES Albuterol (Proventil) 2.5 mg IH Q3HRT PRN PRN Reason: Shortness Of Breath Amlodipine Besylate (Norvasc) 5 mg PO DAILY [facility] Last Admin: 11/01/18 09:02 Dose: 5 mg Documented by: Aspirin (Baby Aspirin) 81 mg PO QDAY [facility] Last Admin: 11/01/18 09:02 Dose: 81 mg Documented by: Atorvastatin Calcium (Lipitor) 80 mg PO DAILY [facility] Last Admin: 11/01/18 09:02 Dose: 80 mg Documented by: Carvedilol (Coreg) 12.5 mg PO BID [facility] Last Admin: 11/01/18 09:02 Dose: 12.5 mg Documented by: Enoxaparin Sodium (Lovenox) 40 mg SUB-Q QDAY [facility] Last Admin: 11/01/18 09:08 Dose: Not Given Documented by: Hydromorphone HCl (Dilaudid) 1 mg IV Q4H PRN PRN Reason: Pain , Severe (7-10) Last Admin: 11/01/18 12:16 Dose: 1 mg Documented by: Ampicillin Sodium/Sulbactam Sodium (Unasyn/Ns 3 Gm/100 Ml) 3 gm in 100 mls @ 200 mls/hr IV Q6HR [facility]; Protocol Last Admin: 11/01/18 12:16 Dose: 200 mls/hr Documented by: Levothyroxine Sodium (Synthroid) 50 mcg PO QAM@0600 [facility] Last Admin: 11/01/18 05:22 Dose: 50 mcg Documented by: Nitroglycerin (Nitrostat) 0.4 mg SL Q5M PRN PRN Reason: Chest Pain Ondansetron HCl (Zofran) 4 mg IV Q6H PRN PRN Reason: Nausea And Vomiting Ranolazine (Ranexa Er) 500 mg PO BID [facility] Last Admin: 11/01/18 09:02 Dose: 500 mg Documented by: Sodium Chloride (Sodium Chloride Flush Syringe 10 Ml) 10 ml IV BID [facility] Last Admin: 11/01/18 09:05 Dose: 10 ml Documented by: Sodium Chloride (Sodium Chloride Flush Syringe 10 Ml) 10 ml IV PRN PRN PRN Reason: LINE FLUSH Physical Examination - Physical Exam Narrative exam: Physical Exam: Constitutional: Alert, cooperative. No acute distress Head, Ears, Nose: Normocephalic, atraumatic. External ears, nose normal Eyes: Conjunctivae/corneas clear. No icterus. No ptosis. Neck: Supple, no meningeal signs Oral: dentition fair, no thrush Cardiovascular: S1, S2 normal. Respiratory: Good air entry, clear to auscultation bilaterally GI: Soft, non-tender; bowel sounds normal. No peritoneal signs Musculoskeletal: RLE carole foot with hyperkeratotic skin, there is mild warmth and tenderness of RLE, no open wound or drainage, no significant erythema. Skin: No rash or abscess Hem/Lymphatic: No palpable cervical or supraclavicular nodes. No lymphangitis Psych: Mood ok. Affect normal Neurological: Awake, alert, oriented. No gross abnormality - Constitutional Vitals: Vital Signs Temp Pulse Resp BP Pulse Ox 97.8 F 68 20 114/69 93 11/01/18 07:57 11/01/18 10:00 11/01/18 07:57 11/01/18 07:57 11/01/18 07:57 Temperature -Last 24 Hours Temperature 97.8 F Temperature 97.7 F Temperature 98.4 F Temperature 97.5 F Temperature 98.3 F Results - Labs CBC & Chem 7: 11/01/18 03:56 11/01/18 04:10 Labs: Abnormal lab results 11/01/18 Range/Units 03:56 Hgb 15.4 H (11.8-15.2) gm/dl [place] % (Auto) 8.9 H (0.0-7.3) % - Imaging and Cardiology Chest x-ray: report reviewed, image reviewed (Chest x-ray shows no evidence of pneumonia) CT scan - chest: report reviewed, image reviewed (CT chest negative for PE and pneumonia) Venous US: report reviewed (Venous duplex: Negative for DVT) Assessment and Plan Cultures: None this admission A/P: 43-year-old male with coronary artery disease status post CABG, hypertension, hypothyroidism, morbid obesity. 1) Mild RLE cellulitis: Non-purulent: Recurrent, previous history of venous graft harvesting for CABG. Patient has had one episode of cellulitis per year for the last 2-3 years. Currently, there is only minimal warmth, slight te nderness. He has no fever or leukocytosis. Recommend short course of oral Keflex for a nonpurulent cellulitis. Mainstay to prevent relapses will be edema control measures such as limb elevation, possible use of compression stockings. DVT scan negative. Vascular also following. . 2) Morbid obesity: Weight loss recommended. Recs: PO Keflex 750 mg QID x 5 days Mainstay to prevent relapses will be edema control measures such as limb elevation, possible use of compression stockings. DVT scan negative. Vascular also following Weight loss D/W Dr. Bart Raymond MD, FACP [facility] ([facility]) M: [phone] O: [phone] F: [phone]
--- NOTE | 2018-11-01 13:39 | Progress Note ---
Assessment and Plan Assessment and plan: Patient is a 43-year-old -[place] male with history of coronary artery disease disease, CABG 3, hypertension, hypothyroidism who [facility] with complaints of right lower extremity swelling and pain for 3 weeks and chest pain with dyspnea on exertion for the past 3-4 days. * CTA chest negative for PE and clear lungs RLE Edema, nonpurulent cellulitis Ruled out PE/DVT, most likely cellullitis, start IV unasyn -D-dimer elevated at 583.34 -CT angiogram chest negative for PE -Right lower extremity edema with warmth and pain -Lower extremity Doppler negative Acute CP, stress test negative, most likely costochondritis -Continue supportive care -Continuous telemetry monitoring -Echocardiogram reviewed -Lexiscan negative -Troponin negative 2, repeat troponin pending -Cardiology consulted HTN -Monitor BP -Resume home antihypertensive meds to optimize BP Hypothyroidism -Continue Synthroid -TSH reviewd Hx CABG (2009) -x3 -consulted cardiology CAD -S/P stent (2009) -Continue ASA and statin Obesity -BMI 47.6 -May Benefit from lifestyle and diet modifications and patient weight management program DVT PPX -on Lovenox History Interval history: Patient was seen and examined. Follow-up on current diagnosis chest pains and right leg pains. No overnight events reported to me. Patient denies any chest pain, shortness breath, nausea/vomiting or severe headaches. Imaging, nursing note, chart, labs and old chart reviewed. Discussed with patient. He is specifically asking for Dilaudid for chest and right leg pains. Hospitalist Physical - Physical exam Narrative exam: Gen: WDWN, NAD, Awake, Alert, Orientated HEENT: NCAT, EOMI, PERRL, OP Clear Neck: supple, no adenopathy, no thyromegaly, no JVD CVS/Heart: RRR, normal S1S2, pulses present bilaterally Chest/Lungs: CTA B, Symmetrical chest expansion, good air entry bilaterally GI/Abdomen: soft, NTND, good bowel sounds, no guarding or rebound /Bladder: no suprapubic tenderness, no CVA or paraspinal tenderness Extermity/Skin: right lower anterior leg below negron soft tissue swelling, slight red, erthymatous and warm but not tender, MSK: FROM x 4 Neuro: CN 2-12 grossly intact, no new focal deficits Psych: calm - Constitutional Vitals: Temp Pulse Resp BP Pulse Ox 97.8 F 68 20 114/69 93 11/01/18 07:57 11/01/18 10:00 11/01/18 07:57 11/01/18 07:57 11/01/18 07:57 General appearance: Present: no acute distress Results - Labs CBC & Chem 7: 11/01/18 03:56 11/01/18 04:10 Labs: Laboratory Last Values WBC 6.1 K/mm3 (4.5-11.0) 11/01/18 03:56 RBC 4.95 M/mm3 (3.65-5.03) 11/01/18 03:56 Hgb 15.4 gm/dl (11.8-15.2) H 11/01/18 03:56 Hct 44.6 % (35.5-45.6) 11/01/18 03:56 MCV 90 fl (84-94) 11/01/18 03:56 MCH 31 pg (28-32) 11/01/18 03:56 MCHC 34 % (32-34) 11/01/18 03:56 RDW 13.4 % (13.2-15.2) 11/01/18 03:56 Plt Count 157 K/mm3 (140-440) 11/01/18 03:56 Lymph % (Auto) 27.1 % (13.4-35.0) 11/01/18 03:56 [place] % (Auto) 8.9 % (0.0-7.3) H 11/01/18 03:56 Eos % (Auto) 3.1 % (0.0-4.3) 11/01/18 03:56 Baso % (Auto) 0.7 % (0.0-1.8) 11/01/18 03:56 Lymph # 1.7 K/mm3 (1.2-5.4) 11/01/18 03:56 [place] # 0.5 K/mm3 (0.0-0.8) 11/01/18 03:56 Eos # 0.2 K/mm3 (0.0-0.4) 11/01/18 03:56 Baso # 0.0 K/mm3 (0.0-0.1) 11/01/18 03:56 Seg Neutrophils % 60.2 % (40.0-70.0) 11/01/18 03:56 Seg Neutrophils # 3.7 K/mm3 (1.8-7.7) 11/01/18 03:56 583.34 ng/mlDDU (0-234) H 10/31/18 00:46 Sodium 139 mmol/L (137-145) 11/01/18 04:10 Potassium 4.2 mmol/L (3.6-5.0) 11/01/18 04:10 Chloride 103.2 mmol/L (98-107) 11/01/18 04:10 Carbon Dioxide 27 mmol/L (22-30) 11/01/18 04:10 13 mmol/L 11/01/18 04:10 BUN 12 mg/dL (9-20) 11/01/18 04:10 1.1 mg/dL (0.8-1.5) 11/01/18 04:10 Estimated GFR > 60 ml/min 11/01/18 04:10 11 % 11/01/18 04:10 Glucose 92 mg/dL (75-100) 11/01/18 04:10 Calcium 8.4 mg/dL (8.4-10.2) 11/01/18 04:10 < 0.010 ng/mL (0.00-0.029) 10/31/18 03:19 Triglycerides 94 mg/dL (2-149) 10/31/18 03:41 Cholesterol 182 mg/dL (50-199) 10/31/18 03:41 131 mg/dL (50-130) H 10/31/18 03:41 50 mg/dL (40-59) 10/31/18 03:41 3.64 % 10/31/18 03:41 TSH 11.290 mlU/mL (0.270-4.200) H 10/31/18 03:41 Free T4 0.95 ng/dL (0.76-1.46) 10/31/18 06:36 5.7 ug/dL (4.0-12.0) 10/31/18 06:36 Active Medications - Current Medications Current Medications: Generic Name Dose Route Start Last Admin Trade Name Freq PRN Reason Stop Dose Admin Acetaminophen 650 mg 10/31/18 03:16 Tylenol PO Q4H PRN Pain MILD(1-3)/Fever >100.5/HERCULES Albuterol 2.5 mg 10/31/18 03:16 Proventil IH Q3HRT PRN Shortness Of Breath Amlodipine Besylate 5 mg 10/31/18 10:00 11/01/18 09:02 Norvasc PO 5 mg DAILY [facility] Administration Aspirin 81 mg 11/01/18 10:00 11/01/18 09:02 Baby Aspirin PO 81 mg QDAY [facility] Administration Atorvastatin Calcium 80 mg 10/31/18 10:00 11/01/18 09:02 Lipitor PO 80 mg DAILY [facility] Administration Carvedilol 12.5 mg 10/31/18 10:00 11/01/18 09:02 Coreg PO 12.5 mg BID [facility] Administration Cephalexin 750 mg 11/01/18 14:00 Keflex PO 11/06/18 13:59 Q6HR [facility]I Enoxaparin Sodium 40 mg 10/31/18 10:00 11/01/18 09:08 Lovenox SUB-Q Not Given QDAY [facility] Hydromorphone HCl 1 mg 10/31/18 15:30 11/01/18 12:16 Dilaudid IV 1 mg Q4H PRN Administration Pain , Severe (7-10) Levothyroxine Sodium 50 mcg 10/31/18 06:00 11/01/18 05:22 Synthroid PO 50 mcg QAM@0600 [facility] Administration Nitroglycerin 0.4 mg 10/31/18 03:11 Nitrostat SL Q5M PRN Chest Pain Ondansetron HCl 4 mg 10/31/18 03:16 Zofran IV Q6H PRN Nausea And Vomiting Ranolazine 500 mg 10/31/18 15:00 11/01/18 09:02 Ranexa Er PO 500 mg BID [facility] Administration Sodium Chloride 10 ml 10/31/18 10:00 11/01/18 09:05 Sodium Chloride Flush Syringe 10 Ml IV 10 ml BID [facility] Administration Sodium Chloride 10 ml 10/31/18 03:16 Sodium Chloride Flush Syringe 10 Ml IV PRN PRN LINE FLUSH
[2018-11-01] MEDS: KEFLEX PO SCH ×2 (17:17→19:59)
--- NOTE | 2018-11-01 18:09 | Cat Scan Report ---
CLINICAL DATA: MAIN: RLE cellulitis TECHNICAL DATA: Following dynamic intravenous nonionic contrast infusion, multiple axial helical overlapped CT with multiplanar reconstructions were obtained. All CT data was transferred to a 3D workstation for multi planar reformation and 3D reconstruction under concurrent physician supervision. All CT scans at this location are performed using CT dose reduction for ALARA by means of automated e xposure control. FINDINGS: CTA ABDOMEN PELVIS: The supraceliac portion of the abdominal aorta is normal. The celiac axis is normal. The origin of th e superior mesenteric artery is normal. There are single bilateral renal arteries which are normal. T he infrarenal abdominal aorta demonstrates atherosclerotic plaques. No evidence of stenosis or abdomi nal aortic aneurysm. The bifurcation into the common iliac is well delineated with atherosclerotic plaques present without evidence of narrowing. The bifurcation into the internal and external iliac arteries demonstrate pat ency without evidence of a hemodynamically significant lesion. CTA RIGHT LOWER EXTREMITY: The common femoral artery, superficial femoral artery, popliteal artery, trifurcation, anterior tibia l artery, posterior tibial artery, and peroneal artery are well delineated and patent to the level of the proximal trifurcation, however the distal anterior tibial artery peroneal artery and posterior t ibial artery only faintly opacified. Subcutaneous edema is present right calf which may compress the normal arterial system. Doppler ultrasound may be of benefit for further evaluation of the right calf (both arterial and venous) CTA LEFT LOWER EXTREMITY: The common femoral artery, superficial femoral artery, popliteal artery, trifurcation, anterior tibia l artery, posterior tibial artery, and peroneal artery are well delineated and patent without evidenc e of significant atherosclerotic disease. CT ABDOMEN PELVIS: No focal parenchymal abnormalities are identified. The gallbladder, pancreas, adrenal glands, and ki dneys are within normal limits. There is no evidence of biliary ductal dilatation. The portal and h epatic veins are patent. No definite intraabdominal or retroperitoneal lymphadenopathy is identified . The bowel gas pattern is nonspecific and nonobstructive. There is no evidence of free intraperito david air or free intraperitoneal fluid. CT through the pelvis reveals the bladder to be well distended and smooth in contour. There is no ev idence of free air or free fluid within the pelvis. No focal soft tissue mass lesions or lymphadenop athy identified. IMPRESSION: 1. No convincing evidence of acute thrombus-embolus of the lower extremity arterial system 2. Edema of the soft tissues involving the right calf, recommend venous and arterial Doppler ultrasou nd for further evaluation of the right calf vessels if clinically indicated 3. No evidence of aortic iliac disease Signer Name: London Sosa MD Signed: 11/01/2018 6:05 PM Workstation Name: [id number]
[2018-11-02] MEDS: DILAUDID IV PRN ×3 (00:52→09:08)
[2018-11-02] MEDS: KEFLEX PO SCH ×3 (00:52→12:09)
[2018-11-02] MEDS: SYNTHROID PO SCH (05:15)
[2018-11-02 08:32] VITALS: BP 135/80
--- NOTE | 2018-11-02 08:52 | Progress Note ---
Assessment and Plan The patient is stable from a cardiac standpoint and is awaiting vascular surgery evaluation. We will sign off at this time. The patient has been seen in conjunction with Dr. Holden, who agrees with assessment and plan. Subjective Date of service: 11/02/18 Interval history: Patient is lying in bed in NAD. He has no complaints. Awaiting vascular surgery evaluation for RLL edema. Objective Vital Signs Temp Pulse Pulse Resp Resp BP BP 11/02/18 08:43 69 11/02/18 08:27 97.5 F L 66 16 135/80 11/02/18 05:45 18 11/02/18 05:15 18 11/02/18 04:33 97.6 F 63 17 130/78 11/02/18 01:22 18 11/02/18 00:52 18 11/01/18 23:35 98.6 F 71 16 115/72 11/01/18 21:48 18 11/01/18 21:20 18 11/01/18 21:18 104 H 18 118/69 11/01/18 20:12 18 11/01/18 19:07 69 11/01/18 19:00 98.6 F 104 H 17 118/69 11/01/18 17:26 97.7 F 71 20 177/99 11/01/18 12:29 98.4 F 71 18 124/89 11/01/18 10:00 69 68 Pulse Ox 11/02/18 08:43 11/02/18 08:27 98 11/02/18 05:45 11/02/18 05:15 11/02/18 04:33 97 11/02/18 01:22 11/02/18 00:52 11/01/18 23:35 94 11/01/18 21:48 11/01/18 21:20 11/01/18 21:18 11/01/18 20:12 98 11/01/18 19:07 11/01/18 19:00 99 11/01/18 17:26 95 11/01/18 12:29 97 11/01/18 10:00 - Physical Examination General: Appears Well HEENT: Positive: PERRL Neck: Positive: neck supple Cardiac: Positive: Reg Rate and Rhythm Lungs: Positive: Normal Exam Neuro: Positive: Grossly Intact Abdomen: Positive: Unremarkable, Soft /Rectal: Other (deferred) Skin: Positive: Clear Musculoskeletal: Normal Range of Motion Extremities: Present: edema (RLL - localized to posttibial area, nonpitting) - Imaging and Cardiology EKG: report reviewed Stress echo: report reviewed (10/31/18: negative for ischemia and infarct) Echo: report reviewed (10/31/18: EF 45-50%, mild LVH, grade 1 left diastolic dysfunction) - EKG Sinus rhythms and dysrhythmias: sinus rhythm
[2018-11-02] MEDS: NORVASC PO SCH (09:02)
[2018-11-02] MEDS: LOVENOX SUB-Q SCH ×2 (09:02→09:05)
[2018-11-02] MEDS: RANEXA ER PO SCH (09:02)
[2018-11-02] MEDS: SODIUM CHLORIDE FLUSH SYRINGE 10 ML IV SCH (09:03)
[2018-11-02] MEDS: BABY ASPIRIN PO SCH (09:03)
[2018-11-02] MEDS: COREG PO SCH (09:03)
--- NOTE | 2018-11-02 10:59 | Discharge Summary ---
Providers - Providers Date of Admission: 10/31/18 03:14 Date of discharge: 11/02/18 Attending physician: LES OQUENDO 10/31/18 03:12 Consult to Cardiology [CONS] Routine Consulting Provider: STEPHANY JOHNSON Reason For Exam: CP hx CABG 10/31/18 15:31 Consult to Physician [CONS] Routine Comment: Consulting Provider: CHRISTOPHER DOMINGUEZ Physician Instructions: Reason For Exam: right leg pains, ?venous insuffiency 10/31/18 16:50 Consult to Physician [CONS] Routine Comment: Consulting Provider: IRLANDA LAGOS Physician Instructions: i notified Reason For Exam: E&M right leg cellulitis Primary care physician: KENYA ESPINOSA Hospitalization Condition: Stable Hospital course: Patient is a 43-year-old -[place] male with history of coronary artery disease disease, CABG 3, hypertension, hypothyroidism who presents to [facility] ED with complaints of right lower extremity swelling and pain for 3 weeks and chest pain with dyspnea on exertion for the past 3-4 days. * CTA chest negative for PE and clear lungs RLE Edema, nonpurulent cellulitis Ruled out PE/DVT, most likely cellullitis, start IV unasyn -D-dimer elevated at 583.34 -CT angiogram chest negative for PE -Right lower extremity edema with warmth and pain -Lower extremity Doppler negative Acute CP, stress test negative, most likely costochondritis -Continue supportive care -Continuous telemetry monitoring -Echocardiogram reviewed -Lexiscan negative -Troponin negative 2, repeat troponin pending -Cardiology consulted HTN -Monitor BP -Resume home antihypertensive meds to optimize BP Hypothyroidism -Continue Synthroid -TSH reviewd Hx CABG (2009) -x3 -consulted cardiology CAD -S/P stent (2009) -Continue ASA and statin Obesity -BMI 47.6 -May Benefit from lifestyle and diet modifications and patient weight management program DVT PPX -on Lovenox Disposition: DC-01 TO HOME OR SELFCARE Time spent for discharge: 34 minutes Core Measure Documentation - Palliative Care Palliative Care/ Comfort Measures: Not Applicable - Core Measures Any of the following diagnoses?: none - VTE Discharge Requirements Deep Vein Thrombosis/Pulmonary Embolism Present on Admission: No Has pt received <5 days of overlap therapy or INR<2.0: No Anticoagulant overlap therapy prescribed at discharge: No Contraindication No Overlap Therapy order at DC: Not Indicated Exam - Physical Exam Narrative exam: Gen: WDWN, NAD, Awake, Alert, Orientated HEENT: NCAT, EOMI, PERRL, OP Clear Neck: supple, no adenopathy, no thyromegaly, no JVD CVS/Heart: RRR, normal S1S2, pulses present bilaterally Chest/Lungs: CTA B, Symmetrical chest expansion, good air entry bilaterally GI/Abdomen: soft, NTND, good bowel sounds, no guarding or rebound /Bladder: no suprapubic tenderness, no CVA or paraspinal tenderness Extermity/Skin: right lower anterior leg below negron soft tissue swelling, slight red, erthymatous and warm but not tender, MSK: FROM x 4 Neuro: CN 2-12 grossly intact, no new focal deficits Psych: calm - Constitutional Vitals: Temp Pulse Resp BP Pulse Ox 97.5 F L 66 16 135/80 98 11/02/18 08:27 11/02/18 09:03 11/02/18 08:27 11/02/18 09:03 11/02/18 08:27 Plan Activity: other (no strenous activity unless cleared by PCP) Diet: low salt Follow up with: KENYA ESPINOSA MD [Primary Care Provider] - 7 Days CHRISTOPHER DOMINGUEZ MD [Staff Physician] - 7 Days Prescriptions: Carvedilol [Coreg] 12.5 mg PO BID #60 tablet Cephalexin [Keflex] 750 mg PO QID #16 capsule Atorvastatin Calcium [Lipitor] 80 mg PO DAILY #30 tablet Amlodipine Besylate [Norvasc] 5 mg PO DAILY #30 tablet Oxycodone HCl/Acetaminophen [Percocet 10/325 mg] 1 each PO Q6HR PRN #20 tablet PRN Reason: Pain , Severe (7-10) Ranolazine ER [Ranexa ER] 500 mg PO BID #60 tablet
== END 2018-11-02 14:22 | disposition home or self-care (01) | DRG 206 ==
LOC: ED 21:10 → 4A 10-31 03:14
PROVIDERS: ADMIT Internal Medicine; ATTEND Internal Medicine
DX: M94.0 Chondrocostal junction syndrome [Tietze] (principal); L03.115 Cellulitis of right lower limb; Z68.42 Body mass index [BMI] 45.0-49.9, adult; I10 Essential (primary) hypertension; E03.9 Hypothyroidism, unspecified; E66.01 Morbid (severe) obesity due to excess calories; G47.33 Obstructive sleep apnea (adult) (pediatric); E78.00 Pure hypercholesterolemia, unspecified; I25.10 Atherosclerotic heart disease of native coronary artery without angina pectoris; Z95.1 Presence of aortocoronary bypass graft; Z91.048 Other nonmedicinal substance allergy status; Z71.3 Dietary counseling and surveillance; I25.2 Old myocardial infarction; Z95.5 Presence of coronary angioplasty implant and graft
CPT/HCPCS: 36415; 71046; 71275; 75635; 78452; 80048; 80061; 84436; 84439; 84443; 84484; 85025; 85379; 93005; 93010; 93017; 93306; 96374; 96375; 99285; G0378; A9270-GY; A9502; J0295; J1170; J1650; J2270; J2405; J2785; Q9967

== ENCOUNTER 2018-11-19 08:21 | Inpatient (IN) | payer OTHER ==
[2018-11-19] MEDS ORDERED: TYLENOL PO ONE (08:30)
[2018-11-19] MEDS ORDERED: TYLENOL ONE (08:33)
[2018-11-19 08:48] LABS: Basophils # (Auto) 0.1 K/mm3 (0.0-0.1); Basophils % (Auto) 0.8 % (0.0-1.8); Hematocrit 46.6 % (35.5-45.6); Hemoglobin 16.3 gm/dl (11.8-15.2); Lymphocytes # (Auto) 0.7 K/mm3 (1.2-5.4); Lymphocytes % (Auto) 5.4 % (13.4-35.0); Mean Corpuscular HGB Conc 35 % (32-34); Mean Corpuscular Volume 89 fl (84-94); Monocytes # (Auto) 0.9 K/mm3 (0.0-0.8); Monocytes % (Auto) 6.4 % (0.0-7.3); Platelet Count 133 K/mm3 (140-440); Red Blood Count 5.26 M/mm3 (3.65-5.03); Red Cell Distribution Width 13.6 % (13.2-15.2)
[2018-11-19 09:06] LABS: Alanine Aminotransferase 15 units/L (7-56); Albumin 4.3 g/dL (3.9-5); BUN/Creatinine Ratio 10; Blood Urea Nitrogen 13 mg/dL (9-20); Calcium 8.8 mg/dL (8.4-10.2); Hemolysis Index 21
[2018-11-19] MEDS ORDERED: MORPHINE IV ONE (09:20)
[2018-11-19] MEDS ORDERED: ZOFRAN IV ONE (09:20)
--- NOTE | 2018-11-19 09:38 | Emergency Department Report ---
ED Extremity Problem HPI - General Chief complaint: Extremity Problem,Nontraumatic Stated complaint: BODYACHE/CHILLS/SWELLING Time Seen by Provider: 11/19/18 09:10 Source: patient, old records reviewed Mode of arrival: Ambulatory Limitations: No Limitations - History of Present Illness Initial comments: 43-year-old male with a past medical history of obesity, triple bypass, cardiac stent, hypertension, high cholesterol, and hypothyroidism presents to the hospital complaints of right lower leg pain, swelling, warmth, intermittent fevers chills 2 days. Symptoms are similar to previous bouts of cellulitis. Patient states on average she gets 2 episodes of cellulitis a year requiring hospitalization. Symptoms have been intermittent since vein was harvested during triple bypass procedure. Patient was just admitted to the hospital by myself in October for both chest pain and right leg cellulitis which was mild at that time. Appears medical records reviewed and patient had elevated d-dimer with negative CT angiogram chest for pulmonary embolism, abdomen and pelvis for clot, and negative Doppler of the right lower extremity for DVT. Patient did receive an infectious disease consult who recommended Keflex, patient states that after discharge he completed the course of Keflex with improvement in swelling and pain. Symptoms have once again worsened for the past 2 days. Severity scale (0 -10): 10 - Related Data Home Medications Medication Instructions Recorded Confirmed Last Taken Levothyroxine [Synthroid] 50 mcg PO QAM 10/30/18 10/30/18 Unknown Previous Rx's Medication Instructions Recorded Last Taken Type Acetaminophen [Acetaminophen TAB] 325 mg PO Q4H PRN #15 tablet 11/02/18 Unknown Rx Amlodipine Besylate [Norvasc] 5 mg PO DAILY #30 tablet 11/02/18 Unknown Rx Aspirin [Aspirin BABY CHEW TAB] 81 mg PO QDAY #30 tab.chew 11/02/18 Unknown Rx Atorvastatin Calcium [Lipitor] 80 mg PO DAILY #30 tablet 11/02/18 Unknown Rx Carvedilol [Coreg] 12.5 mg PO BID #60 tablet 11/02/18 Unknown Rx Cephalexin [Keflex] 750 mg PO QID #16 capsule 11/02/18 Unknown Rx Oxycodone HCl/Acetaminophen 1 each PO Q6HR PRN #20 tablet 11/02/18 Unknown Rx [Percocet 10/325 mg] Ranolazine ER [Ranexa ER] 500 mg PO BID #60 tablet 11/02/18 Unknown Rx Allergies Allergy/AdvReac Type Severity Reaction Status Date / Time adhesive tape Allergy Unknown Verified 11/01/17 16:28 ED Review of Systems ROS: Stated complaint: BODYACHE/CHILLS/SWELLING Other details as noted in HPI Comment: All other systems reviewed and negative ED Past Medical Hx - Past Medical History Hx Hypertension: Yes Hx Heart Attack/AMI: Yes (2009) Hx Congestive Heart Failure: No Hx Diabetes: No Hx Asthma: No Hx COPD: No Additional medical history: hypothyroid, high cholesterol, Obesity - Surgical History Hx Coronary Stent: Yes Additional Surgical History: CABG (triple), stent placement - Social History Smoking Status: Never Smoker - Medications Home Medications: Home Medications Medication Instructions Recorded Confirmed Last Taken Type Levothyroxine [Synthroid] 50 mcg PO QAM 10/30/18 10/30/18 Unknown History Acetaminophen [Acetaminophen TAB] 325 mg PO Q4H PRN #15 tablet 11/02/18 Unknown Rx Amlodipine Besylate [Norvasc] 5 mg PO DAILY #30 tablet 11/02/18 Unknown Rx Aspirin [Aspirin BABY CHEW TAB] 81 mg PO QDAY #30 tab.chew 11/02/18 Unknown Rx Atorvastatin Calcium [Lipitor] 80 mg PO DAILY #30 tablet 11/02/18 Unknown Rx Carvedilol [Coreg] 12.5 mg PO BID #60 tablet 11/02/18 Unknown Rx Cephalexin [Keflex] 750 mg PO QID #16 capsule 11/02/18 Unknown Rx Oxycodone HCl/Acetaminophen 1 each PO Q6HR PRN #20 tablet 11/02/18 Unknown Rx [Percocet 10/325 mg] Ranolazine ER [Ranexa ER] 500 mg PO BID #60 tablet 11/02/18 Unknown Rx ED Physical Exam - General Limitations: No Limitations - Other Other exam information: Normal: No acute distress Head: Atraumatic Eyes: Normal appearance, pupils equally reactive to light, extraocular movements intact ENT: Moist mucous membranes Neck: Normal appearance, no midline cervical tenderness, no meningismus Chest: Clear to auscultation bilaterally, no wheezes, rales, crackles Cardiovascular: Regular rate and rhythm Abdomen: Soft, nontender, nondistended, no rebound or guarding, normal bowel sounds Back: Normal. Extremity: Right lower extremity circumferential swelling to the distal leg which is warm to palpation and tender. 2+ DP pulses equal bilaterally Neuro: Alert and oriented 3, speech normal, no gross motor sensory deficit Psych: Appropriate Skin: No rash ED Course Vital Signs 11/19/18 11/19/18 11/19/18 08:26 09:05 09:09 Temperature 100.3 F H 99.6 F Pulse Rate 74 95 H Respiratory 18 16 Rate Blood Pressure 135/93 Blood Pressure 145/89 [Left] O2 Sat by Pulse 100 95 95 Oximetry ED Medical Decision Making - Lab Data Result diagrams: 11/19/18 08:30 11/19/18 08:30 Lab Results 11/19/18 11/19/18 11/19/18 Range/Units 08:30 08:30 09:51 WBC 13.8 H (4.5-11.0) K/mm3 RBC 5.26 H (3.65-5.03) M/mm3 Hgb 16.3 H (11.8-15.2) gm/dl Hct 46.6 H (35.5-45.6) % MCV 89 (84-94) fl MCH 31 (28-32) pg MCHC 35 H (32-34) % RDW 13.6 (13.2-15.2) % Plt Count 133 L (140-440) K/mm3 Lymph % (Auto) 5.4 L (13.4-35.0) % [place] % (Auto) 6.4 (0.0-7.3) % Eos % (Auto) 0.0 (0.0-4.3) % Baso % (Auto) 0.8 (0.0-1.8) % Lymph # 0.7 L (1.2-5.4) K/mm3 [place] # 0.9 H (0.0-0.8) K/mm3 Eos # 0.0 (0.0-0.4) K/mm3 Baso # 0.1 (0.0-0.1) K/mm3 Seg Neutrophils % 87.4 H (40.0-70.0) % Seg Neutrophils # 12.1 H (1.8-7.7) K/mm3 VBG pH (7.320-7.420) Sodium 136 L (137-145) mmol/L Potassium 3.6 (3.6-5.0) mmol/L Chloride 100.0 (98-107) mmol/L Carbon Dioxide 21 L (22-30) mmol/L Anion Gap 19 mmol/L BUN 13 (9-20) mg/dL Creatinine 1.3 (0.8-1.5) mg/dL Estimated GFR > 60 ml/min BUN/Creatinine Ratio 10 % Glucose 94 (75-100) mg/dL Lactic Acid 0.80 (0.7-2.0) mmol/L Calcium 8.8 (8.4-10.2) mg/dL Total Bilirubin 1.00 (0.1-1.2) mg/dL AST 17 (5-40) units/L ALT 15 (7-56) units/L Alkaline Phosphatase 33 L (35-129) units/L Total Protein 7.7 (6.3-8.2) g/dL Albumin 4.3 (3.9-5) g/dL Albumin/Globulin Ratio 1.3 % 11/19/18 Range/Units 09:51 WBC (4.5-11.0) K/mm3 RBC (3.65-5.03) M/mm3 Hgb (11.8-15.2) gm/dl Hct (35.5-45.6) % MCV (84-94) fl MCH (28-32) pg MCHC (32-34) % RDW (13.2-15.2) % Plt Count (140-440) K/mm3 Lymph % (Auto) (13.4-35.0) % [place] % (Auto) (0.0-7.3) % Eos % (Auto) (0.0-4.3) % Baso % (Auto) (0.0-1.8) % Lymph # (1.2-5.4) K/mm3 [place] # (0.0-0.8) K/mm3 Eos # (0.0-0.4) K/mm3 Baso # (0.0-0.1) K/mm3 Seg Neutrophils % (40.0-70.0) % Seg Neutrophils # (1.8-7.7) K/mm3 VBG pH 7.419 (7.320-7.420) Sodium (137-145) mmol/L Potassium (3.6-5.0) mmol/L Chloride (98-107) mmol/L Carbon Dioxide (22-30) mmol/L Anion Gap mmol/L BUN (9-20) mg/dL Creatinine (0.8-1.5) mg/dL Estimated GFR ml/min BUN/Creatinine Ratio % Glucose (75-100) mg/dL Lactic Acid (0.7-2.0) mmol/L Calcium (8.4-10.2) mg/dL Total Bilirubin (0.1-1.2) mg/dL AST (5-40) units/L ALT (7-56) units/L Alkaline Phosphatase (35-129) units/L Total Protein (6.3-8.2) g/dL Albumin (3.9-5) g/dL Albumin/Globulin Ratio % - Medical Decision Making Pt will be admitted for right leg cellulitis with recent failed outpatient management with her parents. IV vancomycin order to cover for MRSA. Blood cult ures and other sepsis workup added after initial nurse protocol. Hospitalist informed permission. - Differential Diagnosis cellulitis, abscess, DVT Critical Care Time: No Critical care attestation.: If time is entered above; I have spent that time in minutes in the direct care of this critically ill patient, excluding procedure time. ED Disposition Clinical Impression: Right leg swelling, Cellulitis of right leg Disposition: OP ADMIT IP TO THIS HOSP Is pt being admited?: Yes Condition: Stable Time of Disposition: 09:37 (Dr Allen/hospitalist)
[2018-11-19] MEDS ORDERED: VANCOMYCIN PHARMACY TO DOSE IV SCH (10:00)
[2018-11-19] MEDS ORDERED: VANCOMYCIN 1,500 MG in NACL 0.9% 500 ML 500 ML IV ONE (10:30)
[2018-11-19] MEDS ORDERED: SODIUM CHLORIDE FLUSH SYRINGE 10 ML IV PRN (11:51)
[2018-11-19] MEDS ORDERED: PROVENTIL IH PRN (11:51)
[2018-11-19] MEDS ORDERED: TYLENOL PO PRN ×2 (11:51→13:16)
--- NOTE | 2018-11-19 12:25 | Consultation ---
History of Present Illness - Reason for Consult Consult date: 11/19/18 - History of Present Illness 43 yo M PMHx obesity, CABGx3, HTN, HLD, hypothyroidism admitted tot hospital with cellulitis. he complains of fevers, swelling, pain, and warmth in the RLE which began a couple of days prior to admission. He has had several episodes of the same symptoms since having his CABG, up to 5-6 episodes over the last couple of years. He was recently admitted for similar symptoms in October for which he was seen by my partner, Dr. Raymond who recommended a short course of Keflex. The patient noted improvement on the initial Unasyn at the time, as well as the PO Keflex on discharge. Afebriel since admission with Tmax of 100.3 with a leukocytosis to 14. He is currently receiving vancomycin and ceftriaxone. Blood cultures obtained 11/19 are pending. No imaging Review of Systems: Bold if positive, otherwise negative General: fevers, chills, rigors HEENT: visual disturbance, diplopia, eye pain Respiratory: cough, sputum, hemoptysis, shortness of breath Cardiovascular: chest pain, syncope Gastrointestinal: nausea, vomiting, diarrhea, abdominal pain Genitourinary: dysuria, hematuria, flank pain Musculoskeletal: neck pain, back pain, joint pain, edema Neurologic: headaches, seizures Hematologic: easy bruising or bleeding Endocrine: night sweats, acute weight loss Skin: rash, jaundice, redness, warmth Psychiatric: suicidal, homicidal ideation Past History Past Medical History: CAD, hypertension, hyperlipidemia Past Surgical History: CABG Social history: denies: smoking, alcohol abuse Family history: CAD Medications and Allergies Allergies Allergy/AdvReac Type Severity Reaction Status Date / Time adhesive tape Allergy Unknown Verified 11/01/17 16:28 Home Medications Medication Instructions Recorded Confirmed Last Taken Type Levothyroxine [Synthroid] 50 mcg PO QAM 10/30/18 10/30/18 Unknown History Acetaminophen [Acetaminophen TAB] 325 mg PO Q4H PRN #15 tablet 11/02/18 Unknown Rx Amlodipine Besylate [Norvasc] 5 mg PO DAILY #30 tablet 11/02/18 Unknown Rx Aspirin [Aspirin BABY CHEW TAB] 81 mg PO QDAY #30 tab.chew 11/02/18 Unknown Rx Atorvastatin Calcium [Lipitor] 80 mg PO DAILY #30 tablet 11/02/18 Unknown Rx Carvedilol [Coreg] 12.5 mg PO BID #60 tablet 11/02/18 Unknown Rx Cephalexin [Keflex] 750 mg PO QID #16 capsule 11/02/18 Unknown Rx Oxycodone HCl/Acetaminophen 1 each PO Q6HR PRN #20 tablet 11/02/18 Unknown Rx [Percocet 10/325 mg] Ranolazine ER [Ranexa ER] 500 mg PO BID #60 tablet 11/02/18 Unknown Rx Active Meds: Active Medications Acetaminophen (Tylenol) 650 mg PO Q4H PRN PRN Reason: Pain MILD(1-3)/Fever >100.5/HERCULES Albuterol (Proventil) 2.5 mg IH Q4HRT PRN PRN Reason: Shortness Of Breath Vancomycin HCl (Vancomycin/Ns 1 Gm/250 Ml) 1 gm in 250 mls @ 166.667 mls/hr IV Q12H CINDI Ceftriaxone Sodium (Rocephin/Ns 1 Gm/50 Ml) 1 gm in 50 mls @ 100 mls/hr IV Q24HR CINDI; Protocol Ondansetron HCl (Zofran) 4 mg IV Q8H PRN PRN Reason: Nausea And Vomiting Sodium Chloride (Sodium Chloride Flush Syringe 10 Ml) 10 ml IV BID CINDI Sodium Chloride (Sodium Chloride Flush Syringe 10 Ml) 10 ml IV PRN PRN PRN Reason: LINE FLUSH Physical Examination - Physical Exam Narrative exam: Physical Exam: Constitutional: Alert, cooperative. No acute distress Head, Ears, Nose: Normocephalic, atraumatic. External ears, nose normal Eyes: Conjunctivae/corneas clear. No icterus. No ptosis. Neck: Supple, no meningeal signs Oral: dentition fair, no thrush Cardiovascular: S1, S2 normal. Respiratory: Good air entry, clear to auscultation bilaterally GI: Soft, non-tender; bowel sounds normal. No peritoneal signs. Musculoskeletal: RLE edema with tenderness and warmth. Minimal redness. Skin: No rash or abscess Hem/Lymphatic: No palpable cervical or supraclavicular nodes. No lymphangitis Psych: Mood ok. Affect normal Neurological: Awake, alert, oriented. No gross abnormality - Constitutional Vitals: Vital Signs Temp Pulse Resp BP Pulse Ox 99.6 F 95 H 16 145/89 95 11/19/18 09:09 11/19/18 09:09 11/19/18 09:09 11/19/18 09:09 11/19/18 09:09 Temperature -Last 24 Hours Temperature 99.6 F Temperature 100.3 F Results - Labs CBC & Chem 7: 11/19/18 08:30 11/19/18 08:30 Labs: Abnormal lab results 11/19/18 11/19/18 Range/Units 08:30 08:30 WBC 13.8 H (4.5-11.0) K/mm3 RBC 5.26 H (3.65-5.03) M/mm3 Hgb 16.3 H (11.8-15.2) gm/dl Hct 46.6 H (35.5-45.6) % MCHC 35 H (32-34) % Plt Count 133 L (140-440) K/mm3 Lymph % (Auto) 5.4 L (13.4-35.0) % Lymph # 0.7 L (1.2-5.4) K/mm3 [place] # 0.9 H (0.0-0.8) K/mm3 Seg Neutrophils % 87.4 H (40.0-70.0) % Seg Neutrophils # 12.1 H (1.8-7.7) K/mm3 Sodium 136 L (137-145) mmol/L Carbon Dioxide 21 L (22-30) mmol/L Alkaline Phosphatase 33 L (35-129) units/L Assessment and Plan Cultures: 11/19 BCx - pending A/P: 43 yo M PMHx obesity, CABGx3, HTN, HLD, hypothyroidism admitted tot [facility] with cellulitis. 1. Sepsis - present on admission secondary to cellulitis. Agree with blood cultures given his systemic symptoms. Given that he has previously responded to Keflex, would de-escalate his current therapy to cefazolin and monitor for improvement. No history of MRSA. 2. Acute cellulitis - as above 3. Recurrent cellulitis - He has had several episodes in the last couple of years each requiring hospitalization. We discussed the potential role of prophylactic antibiotics, though he relates that during his previous admission he discussed a procedure with vascular surgery that would attempt to alleviate h is edema. He would prefer the procedure to being on long-term prophylactic antibiotics. 4. CAD s/p CABG 5. HTN 6. HLD Recs: - f/u BCx - stop vancomycin - stop ceftriaxone - start cefazolin 2g q8h - f/u with vascular regarding potential procedure? Thank you for the consult, we will continue to follow. Erika Bell MD [facility] ([facility]) M: [phone] O: [phone] F: [phone]
[2018-11-19] MEDS ORDERED: NON-FORMULARY (Oxycodone Hcl/Acetaminophen [Percocet 10/325 Mg] 1 EACH) PO PRN (13:16)
[2018-11-19] MEDS ORDERED: ROCEPHIN/NS 1 GM/50 ML 1 GM/50 ML BAG IV SCH (14:00)
[2018-11-19] MEDS: MORPHINE IV PRN ×3 (14:12→21:09)
[2018-11-19] MEDS: ZOFRAN IV PRN ×2 (14:13→21:10)
[2018-11-19] MEDS ORDERED: PERCOCET 5/325 PO PRN (14:16)
[2018-11-19] MEDS ORDERED: ROXICODONE PO PRN (14:18)
--- NOTE | 2018-11-19 14:29 | History and Physical Report ---
History of Present Illness Date of examination: 11/19/18 Date of admission: 11/19/18 10:59 Chief complaint: Right lower ext Cellulitis History of present illness: Patient is a 43 year old male with history of coronary artery disease disease, CABG 3, hypertension, hypothyroidism who presents to [facility] ED with complaints of right lower extremity swelling and pain, per patient he was recently seen in the hospital, and discharged on Keflex but on getting home started to experience further swelling, warmth and intermittent fever promoting return to the hospital and was noted to have swelling and redness with warmth. He denies any chest pain, nausea, vomiting, diarrhea. He rates the pain on the leg a 5/10 in intensity. We are being requested to admit the patient due to failed outpatient therapy Past History Past Medical History: acute [place] (2009), hypertension, hyperlipidemia, other Past Surgical History: CABG (x3 (2009), s/p stent) Social history: denies: smoking, alcohol abuse, prescription drug abuse Family history: no significant family history Past History Past Medical History: CAD, hypertension, hyperlipidemia Past Surgical History: CABG Social history: denies: smoking, alcohol abuse Family history: CAD Medications and Allergies Allergies Allergy/AdvReac Type Severity Reaction Status Date / Time adhesive tape Allergy Unknown Verified 11/01/17 16:28 Home Medications Medication Instructions Recorded Confirmed Last Taken Type Levothyroxine [Synthroid] 50 mcg PO QAM 10/30/18 10/30/18 Unknown History Acetaminophen [Acetaminophen TAB] 325 mg PO Q4H PRN #15 tablet 11/02/18 Unknown Rx Amlodipine Besylate [Norvasc] 5 mg PO DAILY #30 tablet 11/02/18 Unknown Rx Aspirin [Aspirin BABY CHEW TAB] 81 mg PO QDAY #30 tab.chew 11/02/18 Unknown Rx Atorvastatin Calcium [Lipitor] 80 mg PO DAILY #30 tablet 11/02/18 Unknown Rx Carvedilol [Coreg] 12.5 mg PO BID #60 tablet 11/02/18 Unknown Rx Cephalexin [Keflex] 750 mg PO QID #16 capsule 11/02/18 Unknown Rx Oxycodone HCl/Acetaminophen 1 each PO Q6HR PRN #20 tablet 11/02/18 Unknown Rx [Percocet 10/325 mg] Ranolazine ER [Ranexa ER] 500 mg PO BID #60 tablet 11/02/18 Unknown Rx Active Meds: Active Medications Acetaminophen (Tylenol) 650 mg PO Q4H PRN PRN Reason: Pain MILD(1-3)/Fever >100.5/HERCULES Acetaminophen (Tylenol) 325 mg PO Q4H PRN PRN Reason: Pain MILD(1-3)/Fever >100.5/HERCULES Albuterol (Proventil) 2.5 mg IH Q4HRT PRN PRN Reason: Shortness Of Breath Amlodipine Besylate (Norvasc) 5 mg PO DAILY [facility] Aspirin (Baby Aspirin) 81 mg PO QDAY [facility] Atorvastatin Calcium (Lipitor) 80 mg PO QDAY [facility] Carvedilol (Coreg) 12.5 mg PO BID [facility] Vancomycin HCl (Vancomycin/Ns 1 Gm/250 Ml) 1 gm in 250 mls @ 166.667 mls/hr IV Q12H [facility] Ceftriaxone Sodium (Rocephin/Ns 1 Gm/50 Ml) 1 gm in 50 mls @ 100 mls/hr IV Q24HR [facility]; Protocol Levothyroxine Sodium (Synthroid) 50 mcg PO QAM [facility] Morphine Sulfate (Morphine) 2 mg IV Q4H PRN PRN Reason: Pain, Moderate (4-6) Last Admin: 11/19/18 14:12 Dose: 2 mg Documented by: Ondansetron HCl (Zofran) 4 mg IV Q8H PRN PRN Reason: Nausea And Vomiting Last Admin: 11/19/18 14:13 Dose: 4 mg Documented by: Oxycodone HCl (Roxicodone) 5 mg PO Q6H PRN PRN Reason: Pain , Severe (7-10) Oxycodone/Acetaminophen (Percocet 5/325) 1 tab PO Q6H PRN PRN Reason: Pain , Severe (7-10) Ranolazine (Ranexa Er) 500 mg PO BID [facility] Sodium Chloride (Sodium Chloride Flush Syringe 10 Ml) 10 ml IV BID [facility] Sodium Chloride (Sodium Chloride Flush Syringe 10 Ml) 10 ml IV PRN PRN PRN Reason: LINE FLUSH Review of Systems All systems: negative Constitutional: fever, chills, fatigue, malaise, lethargy, no weight loss, no weight gain, no night sweats, no weakness Ears, nose, mouth and throat: no ear discharge, no decreased hearing, no nasal congestion, no nasal discharge, no dental pain, no sore throat Cardiovascular: no orthopnea, no edema, no shortness of breath, no dyspnea on exertion, no paroxysmal nocturnal dyspnea, no claudication Respiratory: no cough with sputum, no excessive sputum, no hemoptysis, no dyspnea on exertion, no congestion, no wheezing, no pain, no snoring, no sleep apnea Gastrointestinal: no nausea, no vomiting, no diarrhea, no change in bowel habits, no melena, no early satiety, no heartburn, no jaundice, no early satiety Musculoskeletal: no neck pain, no shooting arm pain, no arm numbness/tingling, no low back pain, no shooting leg pain, no leg numbness/tingling, no muscle cramps Integumentary: redness, wounds Neurological: no head injury, no paralysis, no parathesias, no numbness, no tingling, no headaches, no tic, no motor disturbance Psychiatric: anxiety, no memory loss, no sleep disturbances, no hypersomnia, no change in appetite, no anhedonia, no difficulties concentrating, no confusion Endocrine: no cold intolerance, no polyphagia, no polydipsia, no polyuria, no nocturia, no proptosis, no thyroid mass, no high blood sugars, no low blood sugars Hematologic/Lymphatic: lymphadenopathy Allergic/Immunologic: no urticaria, no allergic rhinitis Exam - Physical Exam Narrative exam: Gen: WDWN, NAD, Awake, Alert, Orientated HEENT: NCAT, EOMI, PERRL, OP Clear Neck: supple, no adenopathy, no thyromegaly, no JVD CVS/Heart: RRR, normal S1S2, pulses present bilaterally Chest/Lungs: CTA B, Symmetrical chest expansion, good air entry bilaterally GI/Abdomen: soft, NTND, good bowel sounds, no guarding or rebound /Bladder: no suprapubic tenderness, no CVA or paraspinal tenderness Extermity/Skin: right lower anterior leg below negron soft tissue swelling, slight red, erthymatous and warm but not tender, MSK: FROM x 4 Neuro: CN 2-12 grossly intact, no new focal deficits Psych: calm - Constitutional Vitals: Temp Pulse Resp BP Pulse Ox 98.4 F 84 20 135/76 93 11/19/18 13:08 11/19/18 13:08 11/19/18 13:08 11/19/18 13:08 11/19/18 13:08 Results - Labs CBC & Chem 7: 11/19/18 08:30 11/19/18 08:30 Labs: Laboratory Last Values WBC 13.8 K/mm3 (4.5-11.0) H 11/19/18 08:30 RBC 5.26 M/mm3 (3.65-5.03) H 11/19/18 08:30 Hgb 16.3 gm/dl (11.8-15.2) H 11/19/18 08:30 Hct 46.6 % (35.5-45.6) H 11/19/18 08:30 MCV 89 fl (84-94) 11/19/18 08:30 MCH 31 pg (28-32) 11/19/18 08:30 MCHC 35 % (32-34) H 11/19/18 08:30 RDW 13.6 % (13.2-15.2) 11/19/18 08:30 Plt Count 133 K/mm3 (140-440) L 11/19/18 08:30 Lymph % (Auto) 5.4 % (13.4-35.0) L 11/19/18 08:30 [place] % (Auto) 6.4 % (0.0-7.3) 11/19/18 08:30 Eos % (Auto) 0.0 % (0.0-4.3) 11/19/18 08:30 Baso % (Auto) 0.8 % (0.0-1.8) 11/19/18 08:30 Lymph # 0.7 K/mm3 (1.2-5.4) L 11/19/18 08:30 [place] # 0.9 K/mm3 (0.0-0.8) H 11/19/18 08:30 Eos # 0.0 K/mm3 (0.0-0.4) 11/19/18 08:30 Baso # 0.1 K/mm3 (0.0-0.1) 11/19/18 08:30 Seg Neutrophils % 87.4 % (40.0-70.0) H 11/19/18 08:30 Seg Neutrophils # 12.1 K/mm3 (1.8-7.7) H 11/19/18 08:30 VBG pH 7.419 (7.320-7.420) 11/19/18 09:51 Sodium 136 mmol/L (137-145) L 11/19/18 08:30 Potassium 3.6 mmol/L (3.6-5.0) 11/19/18 08:30 Chloride 100.0 mmol/L (98-107) 11/19/18 08:30 Carbon Dioxide 21 mmol/L (22-30) L 11/19/18 08:30 19 mmol/L 11/19/18 08:30 BUN 13 mg/dL (9-20) 11/19/18 08:30 1.3 mg/dL (0.8-1.5) 11/19/18 08:30 Estimated GFR > 60 ml/min 11/19/18 08:30 10 % 11/19/18 08:30 Glucose 94 mg/dL (75-100) 11/19/18 08:30 Lactic Acid 0.80 mmol/L (0.7-2.0) 11/19/18 09:51 Calcium 8.8 mg/dL (8.4-10.2) 11/19/18 08:30 1.00 mg/dL (0.1-1.2) 11/19/18 08:30 AST 17 units/L (5-40) 11/19/18 08:30 ALT 15 units/L (7-56) 11/19/18 08:30 33 units/L (35-129) L 11/19/18 08:30 7.7 g/dL (6.3-8.2) 11/19/18 08:30 4.3 g/dL (3.9-5) 11/19/18 08:30 1.3 % 11/19/18 08:30 Assessment and Plan Assessment and plan: Patient is a 43 year old male with history of coronary artery disease disease, CABG 3, hypertension, hypothyroidism who presents to [facility] ED with complaints of right lower extremity swelling and pain, per patient he was recently seen in the hospital, and discharged on Keflex but on getting home started to experience further swelling, warmth and intermittent fever promoting return to the hospital and was noted to have swelling and redness with warmth. He denies any chest pain, nausea, vomiting, diarrhea. He rates the pain on the leg a 5/10 in int ensity. We are being requested to admit the patient due to failed outpatient therapy Recurrent Right Lower Ext Cellulitis: Admit to [facility] Start on Emperic Antibiotics, Obtain ID consult. Last records reviewed Recurrent Right lower extremity edema;Dopplers ruled out DVT last admit, Thought to be chronic swelling from past admission HTN -Monitor BP -Resume home antihypertensive meds to optimize BP Hypothyroidism -Continue Synthroid -TSH reviewed Hx CABG (2009) -x3 CAD -S/P stent (2009) -Continue ASA and statin Obesity -BMI 47.6 -May Benefit from lifestyle and diet modifications and patient weight management program DVT PPX -on Lovenox Plan discussed with the patient in detail Advance Directives: Yes Plan of care discussed with patient/family: Yes
[2018-11-19 19:11] LABS: Bilirubin,Urine NEG (Negative); Blood,Urine NEG (Negative); Color,Urine Yellow (Yellow); Mucus,Urine FEW /HPF; Protein,Urine <15 mg/dL mg/dL (Negative); RBC,Urine < 1.0 /HPF (0.0-6.0); Urobilinogen,Urine < 2.0 mg/dL (<2.0)
[2018-11-19] MEDS: COREG PO SCH (21:14)
[2018-11-19] MEDS: RANEXA ER PO SCH (21:14)
[2018-11-19] MEDS: SODIUM CHLORIDE FLUSH SYRINGE 10 ML IV SCH (21:15)
[2018-11-19] MEDS ORDERED: VANCOMYCIN/NS 1 GM/250 ML 1 GM/250 ML BAG IV SCH (22:00)
[2018-11-19] MEDS: ceFAZolin 2 GM in NACL 0.9% 100 ML IV SCH (22:52)
[2018-11-20] MEDS: MORPHINE IV PRN ×4 (05:01→20:17)
[2018-11-20 05:55] LABS: Basophils % (Auto) 0.5 % (0.0-1.8); Eosinophils # (Auto) 0.1 K/mm3 (0.0-0.4); Eosinophils % (Auto) 1.1 % (0.0-4.3); Hematocrit 42.5 % (35.5-45.6); Hemoglobin 14.7 gm/dl (11.8-15.2); Lymphocytes # (Auto) 0.9 K/mm3 (1.2-5.4); Lymphocytes % (Auto) 15.2 % (13.4-35.0); Mean Corpuscular HGB Conc 35 % (32-34); Mean Corpuscular Volume 90 fl (84-94); Monocytes # (Auto) 0.8 K/mm3 (0.0-0.8); Monocytes % (Auto) 12.4 % (0.0-7.3); Platelet Count 108 K/mm3 (140-440); Red Blood Count 4.72 M/mm3 (3.65-5.03); Red Cell Distribution Width 13.6 % (13.2-15.2)
[2018-11-20] MEDS: ceFAZolin 2 GM in NACL 0.9% 100 ML IV SCH ×3 (06:08→21:51)
[2018-11-20 06:16] LABS: BUN/Creatinine Ratio 8; Blood Urea Nitrogen 11 mg/dL (9-20); Calcium 8.3 mg/dL (8.4-10.2); Hemolysis Index 2
--- NOTE | 2018-11-20 07:55 | Progress Note ---
Assessment and Plan Assessment and plan: Patient is a 43 year old male with history of coronary artery disease disease, CABG 3, hypertension, hypothyroidism who presents to [facility] ED with complaints of right lower extremity swelling and pain, per patient he was recently seen in the hospital, and discharged on Keflex but on getting home started to experience further swelling, warmth and intermittent fever promoting return to the hospital and was noted to have swelling and redness with warmth. He denies any chest pain, nausea, vomiting, diarrhea. He rates the pain on the leg a 5/10 in intensity. We are being requested to admit the patient due to failed outpatient therapy Sepsis secondary to cellulitis: Cultures with no growth so far. Continue to monitor Recurrent Right Lower Ext Cellulitis: Antibiotics Per ID patient de-esclated to cefazolin, Recurrent Right lower extremity edema;Dopplers ruled out DVT last admit, Thought to be chronic swelling from past admission. Vascular consulted HTN: Monitor BP,Resume home antihypertensive meds to optimize BP Hypothyroidism: Continue Synthroid,TSH reviewed Hx CABG (2009): x3 CAD: S/P stent (2009),Continue ASA and statin Obesity: BMI 47.6,May Benefit from lifestyle and diet modifications and patient weight management program DVT PPX:-on Lovenox Continue inpatient care: Continue abx, per review of records and also ID documentation: " He has had several episodes in the last couple of years each requiring hospitalization. We discussed the potential role of prophylactic antibiotics, though he relates that during his previous admission he discussed a procedure with vascular surgery that would attempt to alleviate his edema. He would prefer the procedure to being on long-term prophylactic antibiotics." Anticipate discharge in am if no vascular procedure planned and if ok with ID History Interval history: Patient admitted with right lower extremity cellulitis. Patient is not examined this morning swelling appears to be improving. No new fever noted. WBC is better. Patient denies any new symptoms are no overnight adverse event was reported. Hospitalist Physical - Physical exam Narrative exam: Gen: WDWN, NAD, Awake, Alert, Orientated HEENT: NCAT, EOMI, PERRL, OP Clear Neck: supple, no adenopathy, no thyromegaly, no JVD CVS/Heart: RRR, normal S1S2, pulses present bilaterally Chest/Lungs: CTA B, Symmetrical chest expansion, good air entry bilaterally GI/Abdomen: soft, NTND, good bowel sounds, no guarding or rebound /Bladder: no suprapubic tenderness, no CVA or paraspinal tenderness Extermity/Skin: right lower anterior leg below negron soft tissue swelling improving, slight red, erthymatous and warm but not tender, MSK: FROM x 4 Neuro: CN 2-12 grossly intact, no new focal deficits Psych: calm - Constitutional Vitals: Temp Pulse Resp BP Pulse Ox 99.0 F 85 18 114/66 95 11/20/18 06:13 11/20/18 06:13 11/20/18 06:13 11/20/18 06:13 11/20/18 06:13 Results - Labs CBC & Chem 7: 11/20/18 04:58 11/20/18 04:58 Labs: Laboratory Last Values WBC 6.1 K/mm3 (4.5-11.0) 11/20/18 04:58 RBC 4.72 M/mm3 (3.65-5.03) 11/20/18 04:58 Hgb 14.7 gm/dl (11.8-15.2) 11/20/18 04:58 Hct 42.5 % (35.5-45.6) 11/20/18 04:58 MCV 90 fl (84-94) 11/20/18 04:58 MCH 31 pg (28-32) 11/20/18 04:58 MCHC 35 % (32-34) H 11/20/18 04:58 RDW 13.6 % (13.2-15.2) 11/20/18 04:58 Plt Count 108 K/mm3 (140-440) L 11/20/18 04:58 Lymph % (Auto) 15.2 % (13.4-35.0) 11/20/18 04:58 [place] % (Auto) 12.4 % (0.0-7.3) H 11/20/18 04:58 Eos % (Auto) 1.1 % (0.0-4.3) 11/20/18 04:58 Baso % (Auto) 0.5 % (0.0-1.8) 11/20/18 04:58 Lymph # 0.9 K/mm3 (1.2-5.4) L 11/20/18 04:58 [place] # 0.8 K/mm3 (0.0-0.8) 11/20/18 04:58 Eos # 0.1 K/mm3 (0.0-0.4) 11/20/18 04:58 Baso # 0.0 K/mm3 (0.0-0.1) 11/20/18 04:58 Seg Neutrophils % 70.8 % (40.0-70.0) H 11/20/18 04:58 Seg Neutrophils # 4.3 K/mm3 (1.8-7.7) 11/20/18 04:58 VBG pH 7.419 (7.320-7.420) 11/19/18 09:51 Sodium 139 mmol/L (137-145) 11/20/18 04:58 Potassium 3.7 mmol/L (3.6-5.0) 11/20/18 04:58 Chloride 101.6 mmol/L (98-107) 11/20/18 04:58 Carbon Dioxide 24 mmol/L (22-30) 11/20/18 04:58 17 mmol/L 11/20/18 04:58 BUN 11 mg/dL (9-20) 11/20/18 04:58 1.3 mg/dL (0.8-1.5) 11/20/18 04:58 Estimated GFR > 60 ml/min 11/20/18 04:58 8 % 11/20/18 04:58 Glucose 85 mg/dL (75-100) 11/20/18 04:58 Lactic Acid 0.80 mmol/L (0.7-2.0) 11/19/18 09:51 Calcium 8.3 mg/dL (8.4-10.2) L 11/20/18 04:58 1.00 mg/dL (0.1-1.2) 11/19/18 08:30 AST 17 units/L (5-40) 11/19/18 08:30 ALT 15 units/L (7-56) 11/19/18 08:30 33 units/L (35-129) L 11/19/18 08:30 7.7 g/dL (6.3-8.2) 11/19/18 08:30 4.3 g/dL (3.9-5) 11/19/18 08:30 1.3 % 11/19/18 08:30 Yellow (Yellow) 11/19/18 19:00 Clear (Clear) 11/19/18 19:00 5.0 (5.0-7.0) 11/19/18 19:00 Ur Specific [place] 1.017 (1.003-1.030) 11/19/18 19:00 <15 mg/dl mg/dL (Negative) 11/19/18 19:00 Neg mg/dL (Negative) 11/19/18 19:00 20 mg/dL (Negative) 11/19/18 19:00 Neg (Negative) 11/19/18 19:00 Neg (Negative) 11/19/18 19:00 Neg (Negative) 11/19/18 19:00 < 2.0 mg/dL (<2.0) 11/19/18 19:00 Ur Leukocyte Esterase Neg (Negative) 11/19/18 19:00 1.0 /HPF (0.0-6.0) 11/19/18 19:00 < 1.0 /HPF (0.0-6.0) 11/19/18 19:00 Few /HPF 11/19/18 19:00 Active Medications - Current Medications Current Medications: Generic Name Dose Route Start Last Admin Trade Name Freq PRN Reason Stop Dose Admin Acetaminophen 650 mg 11/19/18 11:51 Tylenol PO Q4H PRN Pain MILD(1-3)/Fever >100.5/HERCULES Acetaminophen 325 mg 11/19/18 13:16 Tylenol PO Q4H PRN Pain MILD(1-3)/Fever >100.5/HERCULES Albuterol 2.5 mg 11/19/18 11:51 Proventil IH Q4HRT PRN Shortness Of Breath Amlodipine Besylate 5 mg 11/20/18 10:00 Norvasc PO DAILY [facility] Aspirin 81 mg 11/20/18 10:00 Baby Aspirin PO QDAY [facility] Atorvastatin Calcium 80 mg 11/20/18 10:00 Lipitor PO QDAY [facility] Carvedilol 12.5 mg 11/19/18 22:00 11/19/18 21:14 Coreg PO 12.5 mg BID [facility] Administration Cefazolin Sodium 2 gm/ Sodium 100 mls @ 200 mls/hr 11/19/18 22:00 11/20/18 07:29 Chloride IV Infused Q8HR [facility] Infusion Protocol Levothyroxine Sodium 50 mcg 11/20/18 10:00 Synthroid PO QAM [facility] Morphine Sulfate 2 mg 11/19/18 13:18 11/20/18 05:01 Morphine IV 2 mg Q4H PRN Administration Pain, Moderate (4-6) Ondansetron HCl 4 mg 11/19/18 11:51 11/19/18 21:10 Zofran IV 4 mg Q8H PRN Administration Nausea And Vomiting Oxycodone HCl 5 mg 11/19/18 14:18 11/19/18 22:40 Roxicodone PO 5 mg Q6H PRN Administration Pain , Severe (7-10) Oxycodone/Acetaminophen 1 tab 11/19/18 14:16 Percocet 5/325 PO Q6H PRN Pain , Severe (7-10) Ranolazine 500 mg 11/19/18 22:00 11/19/18 21:14 Ranexa Er PO 500 mg BID [facility] Administration Sodium Chloride 10 ml 11/19/18 22:00 11/19/18 21:15 Sodium Chloride Flush Syringe 10 Ml IV 10 ml BID [facility] Administration Sodium Chloride 10 ml 11/19/18 11:51 Sodium Chloride Flush Syringe 10 Ml IV PRN PRN LINE FLUSH
--- NOTE | 2018-11-20 09:25 | Progress Note ---
Assessment and Plan Cultures: 11/19 BCx - no growth to date A/P: 43 yo M PMHx obesity, CABGx3, HTN, HLD, hypothyroidism admitted tot he hospital with cellulitis. 1. Sepsis - Resolved. secondary to RLE cellulitis. Agree with blood cultures given his systemic symptoms. Given that he has previously responded to Keflex, would de-escalate his current therapy to cefazolin and monitor for improvement. No history of MRSA. 2. Acute cellulitis - Right lower extremity. 3. Recurrent cellulitis - He has had several episodes in the last couple of years each requiring hospitalization. l Most recent hospitalization here 11/01/18. Was discharged home on Keflex. We discussed the potential role of prophylactic antibiotics, though he relates that during his previous admission he discussed a procedure with vascular surgery that would attempt to alleviate his edema. He would prefer the procedure to being on long-term prophylactic antibiotics. 4. CAD s/p CABG 5. HTN 6. HLD Recs: - f/u BCx - continue cefazolin 2g q8h - f/u with vascular regarding potential procedure? [facility] M: [id number] O:[phone] Subjective Date of service: 11/20/18 Interval history: Patient seen and examined. Reports continued RLE pain. No fevers. Objective - Exam Narrative Exam: Constitutional: Alert, cooperative. No acute distress Head, Ears, Nose: Normocephalic, atraumatic. External ears, nose normal Eyes: Conjunctivae/corneas clear. No icterus. No ptosis. Neck: Supple, no meningeal signs Oral: dentition fair, no thrush Cardiovascular: S1, S2 normal. Respiratory: Good air entry, clear to auscultation bilaterally GI: Soft, non-tender; bowel sounds normal. No peritoneal signs. Musculoskeletal: RLE edema with tenderness and warmth. no redness. Skin: No rash or abscess Hem/Lymphatic: No palpable cervical or supraclavicular nodes. No lymphangitis Psych: Mood ok. Affect normal Neurological: Awake, alert, oriented. No gross abnormality - Constitutional Vitals: Vital Signs Temp Pulse Resp BP Pulse Ox 99.0 F 85 18 114/66 95 11/20/18 06:13 11/20/18 06:13 11/20/18 06:13 11/20/18 06:13 11/20/18 06:13 Temperature -Last 24 Hours Temperature 99.0 F Temperature 99.2 F Temperature 99.6 F Temperature 98.4 F - Labs CBC & Chem 7: 11/20/18 04:58 11/20/18 04:58 Labs: Abnormal lab results 11/20/18 11/20/18 Range/Units 04:58 04:58 MCHC 35 H (32-34) % Plt Count 108 L (140-440) K/mm3 [place] % (Auto) 12.4 H (0.0-7.3) % Lymph # 0.9 L (1.2-5.4) K/mm3 Seg Neutrophils % 70.8 H (40.0-70.0) % Calcium 8.3 L (8.4-10.2) mg/dL
[2018-11-20] MEDS: RANEXA ER PO SCH ×2 (09:44→21:50)
[2018-11-20] MEDS: SYNTHROID PO SCH (09:45)
[2018-11-20] MEDS: BABY ASPIRIN PO SCH (09:45)
[2018-11-20] MEDS ORDERED: NON-FORMULARY (Atorvastatin Calcium [Lipitor] 80 MG) PO SCH (10:00)
[2018-11-20] MEDS: SODIUM CHLORIDE FLUSH SYRINGE 10 ML IV SCH ×2 (10:39→21:53)
[2018-11-20] MEDS: COREG PO SCH ×2 (10:39→21:50)
[2018-11-20] MEDS: NORVASC PO SCH (10:39)
--- NOTE | 2018-11-20 16:48 | Consultation ---
History of Present Illness - Reason for Consult Consult date: 11/20/18 Right leg cellulitis Requesting physician: JEOVANY ABBOTT - History of Present Illness The patient is a 43-year-old male with a history of right greater saphenous vein harvest for a CABG in 2009. Since that time the patient states he has had recurrent swelling and cellulitis in his right lower extremity despite wearing compression stockings. He states that he has had a previous ultrasound demon strating reflux of the lesser saphenous vein however he never had intervention. He was admitted for evaluation and treatment of cellulitis that began several days ago. He has no other complaints at this time. Past History Past Medical History: CAD, hypertension, hyperlipidemia Past Surgical History: CABG Social history: denies: smoking, alcohol abuse Family history: CAD Medications and Allergies Allergies Allergy/AdvReac Type Severity Reaction Status Date / Time adhesive tape Allergy Unknown Verified 11/01/17 16:28 Home Medications Medication Instructions Recorded Confirmed Last Taken Type Levothyroxine [Synthroid] 50 mcg PO QAM 10/30/18 10/30/18 Unknown History Acetaminophen [Acetaminophen TAB] 325 mg PO Q4H PRN #15 tablet 11/02/18 Unknown Rx Amlodipine Besylate [Norvasc] 5 mg PO DAILY #30 tablet 11/02/18 Unknown Rx Aspirin [Aspirin BABY CHEW TAB] 81 mg PO QDAY #30 tab.chew 11/02/18 Unknown Rx Atorvastatin Calcium [Lipitor] 80 mg PO DAILY #30 tablet 11/02/18 Unknown Rx Carvedilol [Coreg] 12.5 mg PO BID #60 tablet 11/02/18 Unknown Rx Ranolazine ER [Ranexa ER] 500 mg PO BID #60 tablet 11/02/18 Unknown Rx cephALEXin [Keflex] 500 mg PO Q6HR 12 Days capsule 11/21/18 Unknown Rx oxyCODONE /ACETAMINOPHEN [Percocet 1 tab PO Q6H PRN #14 tablet 11/21/18 Unknown Rx 5/325 mg] Active Meds: Active Medications Acetaminophen (Tylenol) 650 mg PO Q4H PRN PRN Reason: Pain MILD(1-3)/Fever >100.5/HERCULES Acetaminophen (Tylenol) 325 mg PO Q4H PRN PRN Reason: Pain MILD(1-3)/Fever >100.5/HERCULES Albuterol (Proventil) 2.5 mg IH Q4HRT PRN PRN Reason: Shortness Of Breath Amlodipine Besylate (Norvasc) 5 mg PO DAILY [facility] Last Admin: 11/20/18 10:39 Dose: Not Given Documented by: Aspirin (Baby Aspirin) 81 mg PO QDAY [facility] Last Admin: 11/20/18 09:45 Dose: 81 mg Documented by: Atorvastatin Calcium (Lipitor) 80 mg PO QDAY [facility] Last Admin: 11/20/18 09:45 Dose: 80 mg Documented by: Carvedilol (Coreg) 12.5 mg PO BID [facility] Last Admin: 11/20/18 10:39 Dose: Not Given Documented by: Cefazolin Sodium 2 gm/ Sodium (Chloride) 100 mls @ 200 mls/hr IV Q8HR [facility]; Protocol Last Admin: 11/20/18 15:24 Dose: 200 mls/hr Documented by: Levothyroxine Sodium (Synthroid) 50 mcg PO QAM [facility] Last Admin: 11/20/18 09:45 Dose: 50 mcg Documented by: Morphine Sulfate (Morphine) 2 mg IV Q4H PRN PRN Reason: Pain, Moderate (4-6) Last Admin: 11/20/18 15:50 Dose: 2 mg Documented by: Ondansetron HCl (Zofran) 4 mg IV Q8H PRN PRN Reason: Nausea And Vomiting Last Admin: 11/19/18 21:10 Dose: 4 mg Documented by: Oxycodone HCl (Roxicodone) 5 mg PO Q6H PRN PRN Reason: Pain , Severe (7-10) Last Admin: 11/19/18 22:40 Dose: 5 mg Documented by: Oxycodone/Acetaminophen (Percocet 5/325) 1 tab PO Q6H PRN PRN Reason: Pain , Severe (7-10) Ranolazine (Ranexa Er) 500 mg PO BID [facility] Last Admin: 11/20/18 09:44 Dose: 500 mg Documented by: Sodium Chloride (Sodium Chloride Flush Syringe 10 Ml) 10 ml IV BID [facility] Last Admin: 11/20/18 10:39 Dose: Not Given Documented by: Sodium Chloride (Sodium Chloride Flush Syringe 10 Ml) 10 ml IV PRN PRN PRN Reason: LINE FLUSH Review of Systems All systems: negative Exam - Constitutional Vitals: Temp Pulse Resp BP Pulse Ox 98.4 F 67 22 118/72 93 11/20/18 12:37 11/20/18 12:37 11/20/18 12:37 11/20/18 12:37 11/20/18 12:37 General appearance: Present: no acute distress - Neck Neck: Present: supple. Absent: masses or JVD - Respiratory Respiratory effort: normal - Cardiovascular Rhythm: regular - Extremities Extremities: no ischemia, pulses intact Extremity abnormal: edema (Right lower extremity extending from the right foot to the right knee) Peripheral Pulses: within normal limits - Abdominal General gastrointestinal: Present: soft, non-tender Male genitourinary: Present: deferred - Rectal Rectal Exam: deferred - Integumentary Integumentary: Absent: clear (Evidence of healed ulceration on the right anterior negron) Results - Labs CBC & Chem 7: 11/20/18 04:58 11/20/18 04:58 Labs: Abnormal lab results 11/20/18 11/20/18 Range/Units 04:58 04:58 MCHC 35 H (32-34) % Plt Count 108 L (140-440) K/mm3 [place] % (Auto) 12.4 H (0.0-7.3) % Lymph # 0.9 L (1.2-5.4) K/mm3 Seg Neutrophils % 70.8 H (40.0-70.0) % Calcium 8.3 L (8.4-10.2) mg/dL Assessment and Plan 43-year-old male with a history of right lower extremity swelling and recurrent cellulitis after vein harvest for CABG. He has been wearing compression and despite compression has continued swelling and cellulitis. He had a previous reflux study that demonstrated reflux of the lesser saphenous vein however this was performed years ago. He needs a repeat reflux study to reevaluate the superficial venous system. It is likely that he has reflux of the lesser saphenous vein as his swelling only involves his right calf. He would benefit from ablation of the right lesser saphenous vein however this is only performed in the outpatient setting. We will order a reflux study and have him follow-up in our office as an outpatient. I discussed this plan with the patient who expressed understanding and agrees with the plan.
[2018-11-21] MEDS: MORPHINE IV PRN ×3 (00:04→08:48)
[2018-11-21] MEDS: ceFAZolin 2 GM in NACL 0.9% 100 ML IV SCH (06:31)
--- NOTE | 2018-11-21 08:35 | Progress Note ---
Assessment and Plan Cultures: 11/19 BCx - no growth to date A/P: 43 yo M PMHx obesity, CABGx3, HTN, HLD, hypothyroidism admitted tot he hospital with cellulitis. 1. Sepsis - Resolved. secondary to RLE cellulitis. Agree with blood cultures given his systemic symptoms. Given that he has previously responded to Keflex, would de-escalate his current therapy to cefazolin and monitor for improvement. No history of MRSA. 2. Acute cellulitis - Improved Right lower extremity. Duplex scan results pending. Vascular following 3. Recurrent cellulitis - He has had several episodes in the last couple of years each requiring hospitalization. l Most recent hospitalization here 11/01/18. Was discharged home on Keflex. We discussed the potential role of prophylactic antibiotics, though he relates that during his previous admission he discussed a procedure with vascular surgery that would attempt to alleviate his edema. He would prefer the procedure to being on long-term prophylactic antibiotics. 4. CAD s/p CABG 5. HTN 6. HLD Recs: - f/u BCx - continue cefazolin 2g q8h - Will follow up with Vascular outpatient - Anticipate discharge on Keflex 500mg QID for total 2 weeks ending 12-03-18 [facility] M: [phone] O:[phone] Subjective Date of service: 11/21/18 Interval history: Patient seen and examined. Reports improved symptoms to RLE. Mild tenderness reported. No fevers. Objective - Exam Narrative Exam: Constitutional: Alert, cooperative. No acute distress Head, Ears, Nose: Normocephalic, atraumatic. External ears, nose normal Eyes: Conjunctivae/corneas clear. No icterus. No ptosis. Neck: Supple, no meningeal signs Oral: dentition fair, no thrush Cardiovascular: S1, S2 normal. Respiratory: Good air entry, clear to auscultation bilaterally GI: Soft, non-tender; bowel sounds normal. No peritoneal signs. Musculoskeletal: RLE edema with mild tenderness . no erythema Skin: No rash or abscess Hem/Lymphatic: No palpable cervical or supraclavicular nodes. No lymphangitis Psych: Mood ok. Affect normal Neurological: Awake, alert, oriented. No gross abnormality - Constitutional Vitals: Vital Signs Temp Pulse Resp BP Pulse Ox 99.0 F 65 16 116/73 97 11/21/18 05:47 11/21/18 05:47 11/21/18 05:47 11/21/18 05:47 11/21/18 05:47 Temperature -Last 24 Hours Temperature 99.0 F Temperature 98.4 F Temperature 98.7 F Temperature 98.4 F - Labs CBC & Chem 7: 11/20/18 04:58 11/20/18 04:58
[2018-11-21] MEDS: NORVASC PO SCH (11:49)
[2018-11-21] MEDS: COREG PO SCH (11:49)
[2018-11-21] MEDS: SYNTHROID PO SCH (11:49)
[2018-11-21] MEDS: BABY ASPIRIN PO SCH (11:49)
[2018-11-21] MEDS: SODIUM CHLORIDE FLUSH SYRINGE 10 ML IV SCH (11:50)
[2018-11-21] MEDS: RANEXA ER PO SCH (11:51)
--- NOTE | 2018-11-21 12:44 | Vascular Lab Report ---
DUPLEX DOPPLER LOWER EXTREMITY VEINS, BILATERAL INDICATION / CLINICAL INFORMATION: venous reflux. TECHNIQUE: Duplex doppler imaging was performed through the veins of both lower extremities using venous beulah kedar and other maneuvers. COMPARISON: None available. FINDINGS: Right Common Femoral vein: Negative. Right Femoral vein: Negative. Right Popliteal vein: Negative. Right Calf veins: Negative. Right greater saphenous vein: Not visualized. Left Common Femoral vein: Negative. Deep venous reflux measuring 1333 ms. Superficial venous reflux i n the left SFJ --0.81 cm, 783 ms. Left Femoral vein: Negative. Left Popliteal vein: Negative. Left Calf veins: Negative. Left greater saphenous vein: 467 ms. Proximal thigh: 0.73 cm Mid thigh: 0.50 cm Distal thigh: 0.47 cm Knee: 0.50 cm Proximal calf: 0.36 cm Mid calf: 0.35 cm Distal calf: 0.30 cm Ankle: 0.33 cm No venous perforators noted in the right or left lower extremity. Additional findings: None. IMPRESSION: 1. No sonographic evidence for DVT in either lower extremity. 2. Right greater saphenous vein not identified. 3. Left greater saphenous vein measurements as above. Signer Name: Oscar Terry MD Signed: 11/21/2018 12:40 PM Workstation Name: [id number]
[2018-11-21 13:23] VITALS: BP 105/62
--- NOTE | 2018-11-21 13:35 | Discharge Summary ---
Providers - Providers Date of Admission: 11/19/18 10:59 Attending physician: JEOVANY ABBOTT MD 11/19/18 11:53 Consult to Physician [CONS] Routine Comment: Consulting Provider: IRLANDA LAGOS Physician Instructions: Reason For Exam: cellulitis-failed outpatient therapuy 11/20/18 07:51 Consult to Physician [CONS] Routine Comment: Consulting Provider: CHRISTOPHER BERNAL Physician Instructions: Reason For Exam: Recurrent lower ext swelling, Hx of PAD Primary care physician: MUKUL TOM MD Hospitalization Condition: Stable Hospital course: Patient is a 43 year old male with history of coronary artery disease disease, CABG 3, hypertension, hypothyroidism who presents to [facility] ED with complaints of right lower extremity swelling and pain, per patient he was recently seen in the hospital, and discharged on Keflex but on getting home started to experience further swelling, warmth and intermittent fever promoting return to the hospital and was noted to have swelling and redness with warmth. He denies any chest pain, nausea, vomiting, diarrhea. He rates the pain on the leg a 5/10 in intensity. We are being requested to admit the patient due to failed outpatient therapy Sepsis secondary to cellulitis: Cultures with no growth so far. Continue to monitor Recurrent Right Lower Ext Cellulitis: Antibiotics Per ID patient de-esclated to cefazolin, Recurrent Right lower extremity edema;Dopplers ruled out DVT last admit, Thought to be chronic swelling from past admission. Vascular consulted HTN: Monitor BP,Resume home antihypertensive meds to optimize BP Hypothyroidism: Continue Synthroid, TSH reviewed Hx CABG (2009): x3 CAD: S/P stent (2009), Continue ASA and statin Obesity: BMI 47.6,May Benefit from lifestyle and diet modifications and patient weight management program Anticipate discharge in am if no vascular procedure planned and if ok with ID Disposition: DC-01 TO HOME OR SELFCARE Time spent for discharge: 35 mins Core Measure Documentation - Palliative Care Palliative Care/ Comfort Measures: Not Applicable Exam - Constitutional Vitals: Temp Pulse Resp BP Pulse Ox 98.3 F 74 24 105/62 93 11/21/18 13:20 11/21/18 13:20 11/21/18 13:20 11/21/18 13:20 11/21/18 13:20 Plan Activity: advance as tolerated, fall precautions Diet: low fat, low salt Special Instructions: record daily weights, record daily BP diary Additional Instructions: Keep leg elevated Follow up with: MUKUL TOM MD [Primary Care Provider] - 3-5 Days ISABELA WILLSON MD [Staff Physician] - 7 Days JOSE MUNOZ MD [Staff Physician] - 7 Days Prescriptions: cephALEXin [Keflex] 500 mg PO Q6HR 12 Days capsule oxyCODONE /ACETAMINOPHEN [Percocet 5/325 mg] 1 tab PO Q6H PRN #14 tablet PRN Reason: Pain , Severe (7-10)
== END 2018-11-21 16:15 | disposition home or self-care (01) | DRG 872 ==
LOC: ED 08:21 → 3A 10:59
PROVIDERS: ADMIT Hospitalist; ATTEND Internal Medicine
DX: A41.9 Sepsis, unspecified organism (principal); L03.115 Cellulitis of right lower limb; I25.10 Atherosclerotic heart disease of native coronary artery without angina pectoris; I10 Essential (primary) hypertension; E03.9 Hypothyroidism, unspecified; E66.9 Obesity, unspecified; E78.5 Hyperlipidemia, unspecified; Z95.1 Presence of aortocoronary bypass graft; Z95.5 Presence of coronary angioplasty implant and graft; Z68.24 Body mass index [BMI] 24.0-24.9, adult; Z82.49 Family history of ischemic heart disease and other diseases of the circulatory system; Z79.899 Other long term (current) drug therapy; Z79.82 Long term (current) use of aspirin; I25.2 Old myocardial infarction
CPT/HCPCS: 36415; 80048; 80053; 81001; 82140; 82805; 85025; 87040; 87116; 93970; 96374; 96375; G0378; A9270-GY; J0690; J0696; J2270; J2405; J3370; J7040